=== PATIENT | male | born 1945 | race Caucasian/White ===

== ENCOUNTER 2016-07-17 19:36 | Emergency (ER) | payer MEDICARE, BC ==
--- NOTE | 2016-07-17 21:04 | ED ---
Throat Pain/Nasal Congestion - HPI Summary HPI Summary: Patient presents with a foreign body sensation in his left eye since mowing the lawn today. He denies knowing that he had anything go into his eye, but that is what it feels like. He does not wear contact lens. He denies ISSA, vision changes , drainage or nausea. - History of Current Complaint Chief Complaint: EDEyeProblem Time Seen by Provider: 07/17/16 19:50 Hx Obtained From: Patient, Family/Plastics Technician Onset/Duration: Gradual Onset Severity: Mild Associated Signs And Symptoms: Positive: FB Sensation Cough: None - Allergies/Home Medications Allergies/Adverse Reactions: Allergies Allergy/AdvReac Type Severity Reaction Status Date / Time Nitroglycerin Allergy Headache Verified 07/26/14 08:08 PMH/Surg Hx/FS Hx/Imm Hx Endocrine/Hematology History: Denies: Hx Diabetes Cardiovascular History: Reports: Hx Angina - WITH EATING. LAST TIME 2012 Denies: Hx Congestive Heart Failure, Hx Hypertension History: Reports: Hx Kidney Stones - 5 YRS AGO, Other Problems/Disorders - prostate ca, kidney cyst Denies: Hx Renal Disease Musculoskeletal History: Reports: Hx Arthritis Sensory History: Denies: Hx Contacts or Glasses, Hx Hearing Aid Opthamlomology History: Denies: Hx Contacts or Glasses Neurological History: Reports: Other Neuro Impairments/Disorders - numbness L first finger - Cancer History Cancer Type, Location and Year: PROSTATE - Surgical History Surgery Procedure, Year, and Place: 2009 LITHOTRIPSY [facility]. 08/2012 PROSTATECTOMY [place]. PILONIDIAL CYST 1972 Hx Anesthesia Reactions: No - Immunization History Date of Tetanus Vaccine: up to date per pt Infectious Disease History: No Infectious Disease History: Denies: Traveled Outside the [place] in Last 30 Days - Family History Known Family History: Positive: Cardiac Disease, Hypertension - Social History Occupation: Retired Lives: With Family Alcohol Use: Daily Alcohol Amount: 2-3/DAY Substance Use Type: Reports: None Smoking Status (MU): Former Smoker Have You Smoked in the Last Year: No Review of Systems Negative: Fever, Chills Positive: Erythema - mild scleral. Negative: Photophobia, Blurred Vision, Diplopia, Drainage Negative: Headache All Other Systems Reviewed And Are Negative: Yes Physical Exam Triage Information Reviewed: Yes Vital Signs On Initial Exam: Initial Vitals Temp Pulse Resp BP Pulse Ox 97.7 F 64 18 137/81 99 04/28/17 19:42 07/17/16 19:42 07/17/16 19:42 07/17/16 19:42 07/17/16 19:42 Vital Signs Reviewed: Yes Appearance: Positive: Well-Appearing, No Pain Distress, Well-Nourished Skin: Positive: Warm, Skin Color Reflects Adequate Perfusion, Dry, Soft Head/Face: Positive: Normal Head/Face Inspection Eyes: Positive: EOMI, ANTONIA, Conjunctiva Inflammed - mild left ENT: Positive: Hearing grossly normal Respiratory/Lung Sounds: Positive: Breath Sounds Present Cardiovascular: Positive: RRR Musculoskeletal: Negative: Edema Left, Edema Right Neurological: Positive: Sensory/Motor Intact, Alert, Oriented to Person Place, Time, NV Bundle Intact Distally, Normal Gait Psychiatric: Positive: Affect/Mood Appropriate AVPU Assessment: Alert Procedures - Eye Procedure Alcaine Drops Administered: Yes Eye Irrigated w/ Saline (ccs): 10 - no foreign body noted, abrasion to cornea Diagnostics - Vital Signs Vital Signs Temp Pulse Resp BP Pulse Ox 07/17/16 19:54 97.7 F 64 18 137/81 99 07/17/16 19:42 97.7 F 64 18 137/81 99 - Laboratory Lab Statement: Any lab studies that have been ordered have been reviewed, and results considered in the medical decision making process. EENT Course/Dx - Differential Diagnoses Differential Diagnoses: Abrasion, Conjunctivitis, Corneal Abrasion, Detached Retina, Periorbital/Orbital Cellulitis - Diagnoses Provider Diagnoses: Left corneal abrasion Discharge - Discharge Plan Condition: Stable Disposition: HOME Patient Education Materials: Corneal Abrasion (ED) Referrals: Ricky Morgan MD [Primary Care Provider] - Additional Instructions: Use the ointment provided three times daily as directed. Follow-up with your primary care provider next week if symptoms persist. Return to the emergency department if symptoms worsen.
[2016-07-17] MEDS ORDERED: Erythromycin OPTH OINT* APPLIC OINT LEFT EYE ONE (21:06)
[2016-07-17 21:24] VITALS: BP 131/80
== END 2016-07-17 21:23 | disposition home or self-care (01) ==
LOC: ED 19:36
DX: S05.02XA Injury of conjunctiva and corneal abrasion without foreign body, left eye, initial encounter (principal); X58.XXXA Exposure to other specified factors, initial encounter; Y93.H2 Activity, gardening and landscaping; Y92.9 Unspecified place or not applicable
CPT/HCPCS: 99282; A9270-GY

== ENCOUNTER 2016-11-23 05:40 | Emergency (ER) | payer MEDICARE, BC ==
[2016-11-23] MEDS ORDERED: NS 0.9% 1000 ML* 1,000 ML IV ONE (06:02)
[2016-11-23 06:20] LABS: Hematocrit 43 % (42-52); Hemoglobin 14.7 g/dl (14.0-18.0); Mean Corpuscular HGB Conc 34 g/dl (31-36); Mean Corpuscular Hemoglobin 31 pg (27-31); Mean Corpuscular Volume 91 fL (80-94); Mean Platelet Volume 8 um3 (7.4-10.4); Red Cell Distribution Width 13 % (10.5-15); White Blood Count 8.3 10^3/ul (3.5-10.8)
[2016-11-23 06:35] LABS: Albumin 4.3 g/dL (3.2-5.2); BUN/Creatinine Ratio 23.5 (8-20); C Reactive Protein 1.54 mg/L (< 5.00); EGFR African American 120.1 (>60); EGFR Non-African American 93.4 (>60); Potassium 4.1 mmol/L (3.5-5.0); Total Bilirubin 0.8 mg/dL (0.2-1.0); Total Protein 6.3 g/dL (6.4-8.9)
--- NOTE | 2016-11-23 07:02 | ED ---
Armaan Jacobo Rebecca, scribed for Marcos Camilo MD on 11/23/16 at 0602 . Abdominal Pain/Male - HPI Summary HPI Summary: Pt is a 71 y/o M who presents to ED c/o RLQ pain. Pain began last night at 2230 when the pt went to bed and has persisted throughout the night. Pain is currently moderate, ranked 4/10 and characterized as "tender, like a dull ache. " Sx aggravated and alleviated by nothing, unchanged by BM. Denies nausea. PMHx diverticulitis which was diagnosed 3-4 years ago. Current sx are similar to those experienced with diverticulitis. - History of Current Complaint Chief Complaint: EDAbdPain Stated Complaint: LRQ PAIN Time Seen by Provider: 11/23/16 05:57 Hx Obtained From: Patient Onset/Duration: Still Present Severity Currently: Moderate Pain Intensity: 4 Pain Scale Used: 0-10 Numeric Location: Discrete At: RLQ Character: Dull Aggravating Factor(s): Nothing Alleviating Factor(s): Nothing Associated Signs And Symptoms: Positive: Negative. Negative: Nausea - Allergies/Home Medications Allergies/Adverse Reactions: Allergies Allergy/AdvReac Type Severity Reaction Status Date / Time Nitroglycerin Allergy Headache Verified 07/26/14 08:08 PMH/Surg Hx/FS Hx/Imm Hx Endocrine/Hematology History: Denies: Hx Diabetes Cardiovascular History: Reports: Hx Angina - WITH EATING. LAST TIME 2012 Denies: Hx Congestive Heart Failure, Hx Hypertension GI History: Reports: Hx Diverticulosis History: Reports: Hx Kidney Stones - 5 YRS AGO, Other Problems/Disorders - prostate ca, kidney cyst Denies: Hx Renal Disease Musculoskeletal History: Reports: Hx Arthritis Sensory History: Denies: Hx Contacts or Glasses, Hx Hearing Aid Opthamlomology History: Denies: Hx Contacts or Glasses Neurological History: Reports: Other Neuro Impairments/Disorders - numbness L first finger - Cancer History Cancer Type, Location and Year: PROSTATE - Surgical History Surgery Procedure, Year, and Place: 2009 LITHOTRIPSY [facility] [place]. 08/2012 PROSTATECTOMY [place]. PILONIDIAL CYST 1972 Hx Anesthesia Reactions: No - Immunization History Date of Tetanus Vaccine: up to date per pt Infectious Disease History: No Infectious Disease History: Denies: Traveled Outside the [place] in Last 30 Days - Family History Known Family History: Positive: Cardiac Disease, Hypertension - Social History Alcohol Use: Daily Alcohol Amount: 2-3/DAY Substance Use Type: Reports: None Smoking Status (MU): Former Smoker Have You Smoked in the Last Year: No Review of Systems Negative: Fever Positive: Abdominal Pain - RLQ. Negative: Nausea All Other Systems Reviewed And Are Negative: Yes Physical Exam Triage Information Reviewed: Yes Vital Signs On Initial Exam: Initial Vitals Temp Pulse Resp BP Pulse Ox 97.9 F 55 16 135/88 99 11/23/16 05:47 11/23/16 05:47 11/23/16 05:47 11/23/16 05:47 11/23/16 05:47 Vital Signs Reviewed: Yes Appearance: Positive: Well-Appearing, Pain Distress - mild lower abd pain Skin: Positive: Warm Head/Face: Positive: Normal Head/Face Inspection Eyes: Positive: ANTONIA Neck: Positive: Supple, Nontender Respiratory/Lung Sounds: Positive: Breath Sounds Present Cardiovascular: Positive: RRR Abdomen Description: Positive: Soft, Other: - mild rt lower abd tenderness Bowel Sounds: Positive: Present Musculoskeletal: Positive: Strength/ROM Intact Neurological: Positive: Alert, Oriented to Person Place, Time Diagnostics - Vital Signs Vital Signs Temp Pulse Resp BP Pulse Ox 11/23/16 05:47 97.9 F 55 16 135/88 99 - Laboratory Result Diagrams: 11/23/16 06:09 11/23/16 06:09 Lab Statement: Any lab studies that have been ordered have been reviewed, and results considered in the medical decision making process. Abdominal Pain Fem Course/Dx - Course Assessment/Plan: Pt is a 71 y/o M who presents to ED c/o RLQ pain. Pain began last night at 2230 when the pt went to bed and has persisted throughout the night. Pain is currently moderate, ranked 4/10 and characterized as "tender, like a dull ache." Sx aggravated and alleviated by nothing, unchanged by BM. Denies nausea. PMHx diverticulitis which was diagnosed 3-4 years ago. Current sx are similar to those experienced with diverticulitis. In the ED course, pt received fluids. Pt will be signed out to Dr. Shah, pending disposition, awaiting CT Abd/Pel. Pt will be signed out, pending disposition, awaiting CT Abd /Pel. Elevated BP noted and advised to f/u with PCP. - Diagnoses Provider Diagnoses: Diverticulitis Discharge - Discharge Plan Condition: Stable Disposition: OTHER Discharge Disposition Comment: Pt will be signed out to Dr. Shah, pending dispo, awaiting CT Abd/Pel Prescriptions: Levofloxacin TAB* [Levaquin TAB*] 500 mg PO DAILY #10 tab Metronidazole [Flagyl 500 MG TAB] 500 mg PO TID #30 tab Patient Education Materials: Diverticulitis (ED) Referrals: Ricky Morgan MD [Primary Care Provider] - Additional Instructions: Please follow up with your primary care provider in 3 days. The documentation as recorded by the Armaan weeks Rebecca accurately reflects the service I personally performed and the decisions made by me, Marcos Camilo MD.
[2016-11-23] MEDS ORDERED: Iohexol 300* (CONTRAST) 10 ML SDV IV ONE (08:04)
[2016-11-23 09:07] LABS: Urine Bilirubin Negative (Negative); Urine Glucose Negative (Negative); Urine Nitrite Negative (Negative)
--- NOTE | 2016-11-23 09:07 | RAD ---
INDICATION: Lower abdominal pain. History of diverticulosis. History of urolithiasis. Prostate cancer post prostatectomy. COMPARISON: December 27, 2014 CT. TECHNIQUE: Multidetector CT images were obtained from the lung bases to the ischial tuberosities with 117 mL Omnipaque 300 IV and oral contrast. Multiplanar reformation. REPORT: Unremarkable visualized inferior thorax. Few unchanged well-circumscribed water density hepatic lesions consistent with cysts with dominant 1.7 cm cyst at the dome of the LEFT hepatic lobe. No suspicious focal hepatic lesions evident. Negative for biliary dilatation. No CT abnormality of the gallbladder, pancreas, spleen. Negative for CT abnormality of the upper GI, small bowel, or retro to infra cecal appendix. Severe colonic diverticulosis mainly involving the sigmoid colon with mild perienteric inflammatory change at the level of the mid to distal sigmoid colon suspicious for mild acute diverticulitis. No extra enteric gas or perienteric abscess collection evident. Only trace free pelvic fluid. Small fat-containing umbilical hernia without inflammatory change. Normal adrenal glands. Few renal cortical cysts with dominant 2 cysts on the LEFT measuring up to 4.6 cm with both of the dominant LEFT renal cortical cyst demonstrating minimal dependent debris similar to the prior exam. No suspicious focal renal lesions. Negative for hydronephrosis. Unremarkable ureters. Completely decompressed urinary bladder limiting assessment without gross abnormality. No suspicious CT finding at the prostatectomy resection bed. Negative for lymphadenopathy. Mild atherosclerotic plaque and tortuous course of normal diameter abdominal aorta. 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 Degenerative spondylosis and facet joint osteoarthritis most prominent at L5-S1. Associated reactive endplate sclerosis most prominent at the inferior endplate of L2 and superior endplate of L5. No suspicious focal osseous lesions evident. IMPRESSION: 1. The constellation of findings is consistent with mild sigmoid diverticulitis. The magnitude of inflammatory change is less marked than on the December 27, 2014 exam. Negative for free air or perienteric abscess. 2. Post prostatectomy. Negative for lymphadenopathy or suspicious osseous lesions.
[2016-11-23] MEDS ORDERED: metroNIDAZOLE IV 500 MG/100ML* 500 MG/100 ML BAG IVPB ONE (09:10)
[2016-11-23] MEDS ORDERED: Levofloxacin 750 MG IVPREMIX(* 750 MG/150 ML BAG IVPB ONE (09:10)
--- NOTE | 2016-11-23 10:50 | ED ---
Matt Jacobo Angela, scribed for Richard Shah on 11/23/16 at 0729 . Progress - Progress Note Progress Note: Pt is a 71 y/o male presenting to [facility] c/o RLQ pain. Pt reports his pain began last night at 2230. He notes his pain is similar to PMHx: diverticulitis (3-4 years ago). This patient was signed out from Dr. Camilo, pending disposition, awaiting CT abdomen/pelvis. CT abdomen/pelvis reveals 1. The constellation of findings is consistent with mild sigmoid diverticulitis. The magnitude of inflammatory change is less marked than on the December 27, 2014 exam. Negative for free air or perienteric abscess. 2. Post prostatectomy. Negative for lymphadenopathy or suspicious osseous lesions. The pt's condition is stable and will be discharged home with a diagnosis of diverticulitis. - Results/Orders Results/Orders: CT abdomen/pelvis IMPRESSION: 1. The constellation of findings is consistent with mild sigmoid diverticulitis. The magnitude of inflammatory change is less marked than on the December 27, 2014 exam. Negative for free air or perienteric abscess. 2. Post prostatectomy. Negative for lymphadenopathy or suspicious osseous lesions. Course/Dx - Diagnoses Provider Diagnoses: Diverticulitis The documentation as recorded by the Matt weeks Angela accurately reflects the service I personally performed and the decisions made by Pablo mishra Emmanuel.
[2016-11-23 11:01] VITALS: BP 134/93
== END 2016-11-23 11:00 ==
LOC: ED 05:40
DX: K57.92 Diverticulitis of intestine, part unspecified, without perforation or abscess without bleeding (principal); R10.31 Right lower quadrant pain
CPT/HCPCS: 36415; 74177; 80053; 81003; 83605; 83690; 83735; 85025; 86140; 99283; Q9967

== ENCOUNTER 2018-10-03 22:52 | Emergency (ER) | payer MEDICARE, BC ==
--- OUTSIDE RECORDS SUMMARY | 2018-10-03 23:10 | XMS REPORT | Continuity of Care Document ---
:1945 External Reference #:[id number] Author Name Benjie Krueger Care Team Providers Name Role Phone Rivera Millard III, MD Primary Care Physician Unavailable Payers Date Identification Numbers Payment Provider Subscriber Effective: 2008 Policy Number: [id number] Medicare Frances Venegas José PayID: [id number] [address] [place] [address] Effective: 2011 Policy Number: [id number] [employer]ets Frances Venegas José PayID: [id number] [address] [address] [place] [address] Problems Active Problems Provider Date Mixed hyperlipidemia Ricky Morgan M.D.,FACP Onset: 07/05/2007 Impaired fasting glycaemia Ricky Morgan M.D.,FACP Onset: 08/19/2011 Malignant tumor of prostate Ricky Morgan M.D.,FACP Onset: 07/22/2012 Kidney stone Ricky Morgan M.D.,FACP Onset: 12/28/2014 Diverticular disease of colon Ricky Morgan M.D.,FACP Onset: 03/05/2015 Insomnia Ricky Morgan M.D.,FACP Onset: 09/01/2017 Ex-smoker Ricky Mrogan M.D.,FACP Onset: 03/18/2018 Inactive Problems Benign prostatic hypertrophy without Ricky Morgan M.D.,FACP Onset: outflow obstruction Inactive: 08/19/2012 Family History Date Family Member(s) Observation Comments Father due to Cancer, () - 79 Colon Mother due to Cancer, () Breast Siblings 1 First Brother Diabetes Type II : (age 100 Paternal Grandfather due to Unknown Years) Causes Social History Type Date Description Comments Sex Unknown Marital Status Lives With Occupation Retired Tobacco Use Start: Unknown End: Former Cigarette for 20 years. Quit Unknown Smoker 1 Pack Daily 1982 Smoking Status Reviewed: 09/05/18 Former Cigarette for 20 years. Quit Smoker 1 Pack Daily 1982 ETOH Use 08/31/2016 consumes 2-3 beers per CAGE questions - yes day to guilt, o/w negative Recreational Drug Use Denies Drug Use Tobacco Use Start: Unknown End: Patient is a former Started 1961; Quit Unknown smoker 1982; smoked max 1ppd Exercise Type/Frequency Exercises regularly walks 3 miles/day Allergies, Adverse Reactions, Alerts Active Allergies Reaction Severity Comments Date Nitroglycerin topical causes headache 07/05/2007 Inactive Allergies NKDA 07/05/2007 Medications Active Medications SIG Qnty Indications Ordering Provider Date Fish Oil 1 po qd Ricky Yuan 07/21/2010 1000mg Harvey Morgan,ZONIA Capsules Glucosamine 2 po qd Ricky Yuan 07/21/2010 Chondroitin Complex Harvey Morgan,FACP Capsules Aspirin 1 po qd 786.59 Ricky Yuan 07/21/2010 81mg Tablets Harvey Morgan,FACP Melatonin 2 po during the 30caps Unknown 5mg Capsules night for insomnia. Repeats when needed. Lipitor take one tablet 90tabs Rivera Millard, 10mg Tablets by mouth once M.D. daily at bedtime Bactroban Nasal apply to both 10gm Ricky Yuan 2% nostrils twice a Harvey Morgan,FACP Ointment day History Medications Azithromycin 2 every day for 1 6tabs Ricky Yuan 03/18/2018 - 250mg day, then 1 every Harvey Morgan,FACP 03/23/2018 Tablets day Shingrix 0.5 milliliters 2units Ricky Yuan 09/01/2017 - 50mcg intramuscular now Harvey Morgan,FACP 09/05/2018 Suspension Rec and 2-3 months later repeat Metronidazole three times a day 21tabs Ricky Yuan 02/15/2017 - 500mg for 7 days Harvey Morgan,[facility] 02/22/2017 Tablets Levaquin 1 by mouth every day 7tabs Ricky Yuan 02/15/2017 - 500mg Tablets x 7 days Harvey [facility] 02/22/2017 Ciprofloxacin HCL si twice a day x K57.32 Unknown 12/27/2014 - 500mg 5 days 01/02/2015 Tablets Metronidazole three times a day K57.32 Unknown 12/27/2014 - 500mg for 7 days 01/02/2015 Tablets Naproxen 1 tablet by mouth 30tabs 728.89 Galdino Mcdonnell, 09/28/2014 - 250mg Tablets twice a day as M.D. 10/22/2014 needed pain, with foods Cyclobenzaprine HCL 1 tablet by mouth 30tabs 728.89 Galdino Mcdonnell, 2014 - 5mg three times a day as M.D. 12/28/2014 Tablets needed Meclizine HCL 1/2-1 by mouth three 30tabs Ricky Yuan 06/20/2013 - 25mg times a day as Harvey Morgan,[facility] 06/21/2013 Tablets needed Amoxicillin/Clavulana 1 tab by mouth 2x 20tabs 461.1 Jennifer Nicholas, 2013 - te Potassium per day M.D. 08/28/2014 875-125mg Tablets Betamethasone apply as directed 45units Ricky Yuan 05/01/2013 - Valerate Harvey Morgan,[facility] 10/22/2014 0.1% Cream Estazolam 1 tab po qhs 30tabs 780.52 Zuleima Florence, 09/21/2012 - 2mg Tablets N.P. 09/21/2012 Lunesta 2 tabs po qhs prn. 60tabs 780.52 Zuleima Florence, 09/21/2012 - 1mg Tablets N.P. 09/21/2012 Lunesta 1 hs 30tabs 780.52 Axel Herrera, 09/21/2012 - 2mg Tablets M.D. 06/09/2013 Augmentin po bid 20tabs 381.00 Serafin 01/27/2011 - 875-125mg Harvey Galan 08/19/2011 Tablets Nystatin/Triamcinolon topically bid prn 30gm 698.0 Ricky Yuan 2007 - e Harvey Morgan,FACP 07/05/2008 Cream Flomax 1 PO qd 30caps Ricky Yuan - 0.4mg Caps ER Harvey Morgan,FACP 08/27/2014 24HR Amoxicillin Unknown - 500mg 10/27/2014 Capsules Vinegar 2 tbsp daily @ am Unknown - Unknown Metaxalone 1 by mouth 3x/day if Unknown - 400mg needed (for plantar Unknown Tablets fascitis) Metronidazole 1 po tid prn 21tabs Ricky Yuan - 500mg diverticulitis Harvey Morgan,FACP Unknown Tablets Levofloxacin 1 po qd prn for 7tabs Ricky Yuan - 500mg diverticulitis Harvey Morgan,FACP Unknown Tablets Immunizations CPT Code Status Date Vaccine Lot # [id number] Given 08/27/2014 Tdap - Tetanus/Diptheria/Acellular Pertussis [id number] Given 08/27/2014 Pneumococcal Conjugate Vaccine 13 Valent For [id number] Intramuscular Use [id number] Given 01/11/2013 Zoster (Zostavax) [id number] Given 01/11/2013 Zoster (Zostavax) [id number] 62572 Given 07/21/2010 Pneumonia Vaccine [id number] Given 01/24/2004 Td Toxoids Adsorbed For Use 7Yrs Or Older For Intramuscular Use [id number] Refused 12/31/2010 Influenza Virus 3Yrs & Over [id number] Refused 07/21/2010 Influenza Virus 3Yrs & Over Vital Signs Date Vital Result Comment 09/05/2018 10:45am Height 68 inches 5'8" Weight 201.00 lb Heart Rate 68 /min BP Systolic Sitting 142 mmHg BP Diastolic Sitting 84 mmHg BMI (Body Mass Index) 30.6 kg/m2 03/18/2018 2:32pm Height 68.5 inches 5'8.50" Weight 205.00 lb Heart Rate 88 /min BP Systolic Sitting 140 mmHg BP Diastolic Sitting 80 mmHg Body Temperature 98.6 F O2 % BldC Oximetry 94 % BMI (Body Mass Index) 30.7 kg/m2 09/01/2017 12:51pm Height 68.5 inches 5'8.50" Weight 195.00 lb Heart Rate 74 /min BP Systolic Sitting 136 mmHg BP Diastolic Sitting 70 mmHg Body Temperature 98.1 F O2 % BldC Oximetry 95 % BMI (Body Mass Index) 29.2 kg/m2 02/02/2017 10:58am Height 69 inches 5'9" Weight 195.00 lb Heart Rate 72 /min BP Systolic 148 mmHg BP Diastolic 82 mmHg Respiratory Rate 18 /min Body Temperature 98.5 F BMI (Body Mass Index) 28.8 kg/m2 11/25/2016 9:52am Weight 200.00 lb "194.4 on home unit" Heart Rate 65 /min BP Systolic Sitting 140 mmHg BP Diastolic Sitting 80 mmHg Body Temperature 97.1 F O2 % BldC Oximetry 97 % 08/31/2016 10:42am Height 69 inches 5'9" Weight 198.12 lb Heart Rate 65 /min BP Systolic Sitting 126 mmHg BP Diastolic Sitting 80 mmHg Body Temperature 97.8 F O2 % BldC Oximetry 97 % BMI (Body Mass Index) 29.3 kg/m2 10/01/2015 2:35pm Weight 162.00 lb Heart Rate 89 /min BP Systolic Sitting 121 mmHg BP Diastolic Sitting 75 mmHg Body Temperature 98.2 F 08/30/2015 9:46am Height 68.5 inches 5'8.50" Weight 195.00 lb Heart Rate 64 /min BP Systolic Sitting 128 mmHg BP Diastolic Sitting 72 mmHg O2 % BldC Oximetry 98 % BMI (Body Mass Index) 29.2 kg/m2 03/05/2015 9:10am Weight 208.00 lb Heart Rate 75 /min BP Systolic Sitting 144 mmHg BP Diastolic Sitting 80 mmHg Body Temperature 98.1 F O2 % BldC Oximetry 98 % 12/28/2014 1:46pm Height 68 inches 5'8" Weight 206.25 lb Heart Rate 67 /min BP Systolic Sitting 126 mmHg BP Diastolic Sitting 78 mmHg Body Temperature 97.9 F O2 % BldC Oximetry 98 % BMI (Body Mass Index) 31.4 kg/m2 10/22/2014 10:52am Height 68 inches 5'8" Weight 207.25 lb Heart Rate 69 /min BP Systolic Sitting 120 mmHg BP Diastolic Sitting 70 mmHg Body Temperature 97.4 F O2 % BldC Oximetry 97 % BMI (Body Mass Index) 31.5 kg/m2 09/28/2014 3:53pm Height 68 inches 5'8" Weight 202.25 lb Heart Rate 88 /min BP Systolic Sitting 128 mmHg BP Diastolic Sitting 70 mmHg Body Temperature 98.4 F O2 % BldC Oximetry 98 % BMI (Body Mass Index) 30.7 kg/m2 08/27/2014 12:45pm Height 68 inches 5'8" Weight 208.00 lb Heart Rate 78 /min BP Systolic Sitting 160 mmHg BP Diastolic Sitting 82 mmHg Body Temperature 98.5 F O2 % BldC Oximetry 98 % BMI (Body Mass Index) 31.6 kg/m2 08/24/2013 8:19am Height 69 inches 5'9" Weight 204.00 lb Heart Rate 66 /min BP Systolic Sitting 128 mmHg BP Diastolic Sitting 76 mmHg Respiratory Rate 14 /min BMI (Body Mass Index) 30.1 kg/m2 06/21/2013 2:59pm Height 68.5 inches 5'8.50" Weight 205.00 lb Heart Rate 96 /min BP Systolic Sitting 130 mmHg BP Diastolic Sitting 84 mmHg Body Temperature 98.1 F BMI (Body Mass Index) 30.7 kg/m2 06/09/2013 2:11pm Height 68.75 inches 5'8.75" Weight 208.50 lb Heart Rate 83 /min BP Systolic Sitting 144 mmHg BP Diastolic Sitting 89 mmHg Body Temperature 98.2 F O2 % BldC Oximetry 96 % BMI (Body Mass Index) 31.0 kg/m2 09/21/2012 2:51pm Height 68.75 inches 5'8.75" Weight 195.00 lb Heart Rate 68 /min BP Systolic Sitting 138 mmHg BP Diastolic Sitting 74 mmHg BMI (Body Mass Index) 29.0 kg/m2 08/19/2012 10:13am Height 68.75 inches 5'8.75" Weight 202.00 lb Heart Rate 86 /min BP Systolic Sitting 130 mmHg BP Diastolic Sitting 70 mmHg BMI (Body Mass Index) 30.0 kg/m2 02/08/2012 1:51pm Height 68.75 inches 5'8.75" Weight 208.00 lb Heart Rate 78 /min BP Systolic Sitting 135 mmHg BP Diastolic Sitting 74 mmHg BMI (Body Mass Index) 30.9 kg/m2 08/19/2011 10:59am Height 68.75 inches 5'8.75" Weight 200.50 lb Heart Rate 72 /min BP Systolic Sitting 134 mmHg BP Diastolic Sitting 76 mmHg BMI (Body Mass Index) 29.8 kg/m2 01/27/2011 10:26am Height 68.5 inches 5'8.50" Weight 205.00 lb Heart Rate 75 /min BP Systolic Sitting 130 mmHg BP Diastolic Sitting 85 mmHg Body Temperature 97.1 F BMI (Body Mass Index) 30.7 kg/m2 12/31/2010 4:09pm Height 68.5 inches 5'8.50" Weight 204.00 lb Heart Rate 72 /min BP Systolic Sitting 126 mmHg BP Diastolic Sitting 74 mmHg BMI (Body Mass Index) 30.6 kg/m2 12/23/2010 3:13pm Height 68.5 inches 5'8.50" Weight 206.50 lb Heart Rate 72 /min BP Systolic Sitting 140 mmHg BP Diastolic Sitting 92 mmHg BMI (Body Mass Index) 30.9 kg/m2 09/03/2010 9:38am Height 69 inches 5'9" Weight 209.00 lb Heart Rate 72 /min BP Systolic Sitting 146 mmHg BP Diastolic Sitting 78 mmHg BMI (Body Mass Index) 30.9 kg/m2 07/21/2010 2:50pm Height 69 inches 5'9" Weight 206.00 lb Heart Rate 76 /min BP Systolic Sitting 120 mmHg BP Diastolic Sitting 84 mmHg BMI (Body Mass Index) 30.4 kg/m2 07/16/2009 9:52am Height 69 inches 5'9" Weight 217.00 lb Heart Rate 76 /min BP Systolic Sitting 138 mmHg BP Diastolic Sitting 80 mmHg BMI (Body Mass Index) 32.0 kg/m2 09/10/2008 9:51am Height 69 inches 5'9" Weight 208.00 lb Heart Rate 60 /min BP Systolic Sitting 124 mmHg BP Diastolic Sitting 76 mmHg BMI (Body Mass Index) 30.7 kg/m2 07/05/2008 10:17am Weight 213.00 lb Heart Rate 72 /min BP Systolic Sitting 150 mmHg BP Diastolic Sitting 84 mmHg 11/10/2007 11:13am Height 69 inches 5'9" Weight 208.00 lb Heart Rate 72 /min BP Systolic Sitting 132 mmHg BP Diastolic Sitting 80 mmHg BMI (Body Mass Index) 30.7 kg/m2 07/05/2007 12:49pm Height 69 inches 5'9" Weight 212.00 lb Heart Rate 68 /min BP Systolic Sitting 132 mmHg BP Diastolic Sitting 80 mmHg BMI (Body Mass Index) 31.3 kg/m2 Results Test Date Facility Test Result H/L Range Note Lipid Profile 08/31/2018 [facility] Triglycerides 80 mg/dL 1 (Trig/Chol/HDL) [address] [place] [address] [phone] Cholesterol 148 mg/dL 2 HDL Cholesterol 42.8 mg/dL 3 LDL Cholesterol 89 mg/dL 4 Comp Metabolic Panel 08/31/2018 [facility] Sodium 141 mmol/L N [address] [place] [address] [phone] Potassium 4.3 mmol/L N 3.5-5.0 Chloride 109 mmol/L N 101-111 Co2 Carbon Dioxide 25 mmol/L N 22-32 Anion Gap 7 mmol/L N 2-11 Glucose 101 mg/dL High 70-100 Blood Urea Nitrogen 22 mg/dL N 6-24 Creatinine 0.82 mg/dL N 0.67-1.17 BUN/Creatinine Ratio 26.8 High 8-20 Calcium 9.2 mg/dL N 8.6-10.3 Total Protein 6.2 g/dL Low 6.4-8.9 Albumin 4.3 g/dL N 3.2-5.2 Globulin 1.9 g/dL Low 2-4 Albumin/Globulin Ratio 2.3 N 1-3 Total Bilirubin 0.80 mg/dL N 0.2-1.0 Alkaline Phosphatase 60 U/L N 34-104 Alt 17 U/L N 7-52 Ast 16 U/L N 13-39 Egfr Non- 91.8 >60 Egfr 111.1 >60 5 Laboratory test 08/31/2018 [facility] Hemoglobin A1c 5.6 % N 4.0-5.6 6 finding 101 (Glyco HGB) [place] [address] [phone] Laboratory test 01/11/2018 [facility] PSA Diagnostic < 0.008 0-4.[address] ng/[place] [address] [phone] Lipid Profile 08/19/2017 [facility] Triglycerides 56 mg/dL 8 (Trig/Chol/HDL) [address] [place] [address] [phone] Cholesterol 142 mg/dL 9 HDL Cholesterol 49.5 mg/dL 10 LDL Cholesterol 81 mg/dL 11 Basic Metabolic Panel 08/19/2017 [facility] Sodium 141 mmol/L N 139-145 [address] [place] [address] [phone] Potassium 4.2 mmol/L N 3.5-5.0 Chloride 110 mmol/L N 101-111 Co2 Carbon Dioxide 25 mmol/L N 22-32 Anion Gap 6 mmol/L N 2-11 Glucose 94 mg/dL N 70-100 Blood Urea Nitrogen 21 mg/dL N 6-24 Creatinine 0.82 mg/dL N 0.67-1.17 BUN/Creatinine Ratio 25.6 High 8-20 Calcium 9.2 mg/dL N 8.6-10.3 Egfr Non- 92.1 >60 Egfr 118.4 >60 12 Laboratory test 06/30/2017 [facility] PSA Screening 0.016 ng/mL N 0-4.000 13 finding [address] [place] [address] [phone] Urinalysis 11/23/2016 [facility] Urine Color Colorless N Profile [address] [place] [address] [phone] Urine Appearance Clear N Urine Specific Ulm 1.003 Low 1.010-1.030 Urine pH 6.0 N 5-9 Urine Urobilinogen Negative N Negative Urine Ketones Negative N Negative Urine Protein Negative N Negative Urine Leukocytes Negative N Negative Urine Blood Negative N Negative Urine Nitrite Negative N Negative Urine Bilirubin Negative N Negative Urine Glucose Negative N Negative CBC Auto Diff 11/23/2016 [facility] White Blood 8.3 10^3/uL N 3.5-10.[address] [place] [address] [phone] Red Blood Count 4.70 10^6/uL N 4.0-5.4 Hemoglobin 14.7 g/dL N 14.0-18.0 Hematocrit 43 % N 42-52 Mean Corpuscular Volume 91 fL N 80-94 Mean Corpuscular Hemoglobin 31 pg N 27-31 Mean Corpuscular HGB Conc 34 g/dL N 31-36 Red Cell Distribution Width 13 % N 10.5-15 Platelet Count 171 10^3/uL N 150-450 Mean Platelet Volume 8 um3 N 7.4-10.4 Abs Neutrophils 6.4 10^3/uL N 1.5-7.7 Abs Lymphocytes 0.9 10^3/uL Low 1.0-4.8 Abs Monocytes 0.7 10^3/uL N 0-0.8 Abs Eosinophils 0.2 10^3/uL N 0-0.6 Abs Basophils 0 10^3/uL N 0-0.2 Abs Nucleated RBC 0 10^3/uL N Granulocyte % 76.9 % N 38-83 Lymphocyte % 10.8 % Low 25-47 Monocyte % 9.0 % N 1-9 Eosinophil % 2.8 % N 0-6 Basophil % 0.5 % N 0-2 Nucleated Red Blood Cells % 0 N Laboratory test 11/23/2016 [facility] Lactic Acid 1.0 mmol/L N 0.5-2.0 [address] [place] [address] [phone] Comp Metabolic 11/23/2016 [facility] Sodium 137 mmol/L N 133- [address] [place] [address] [phone] Potassium 4.1 mmol/L N 3.5-5.0 Chloride 108 mmol/L N 101-111 Co2 Carbon Dioxide 24 mmol/L N 22-32 Anion Gap 5 mmol/L N 2-11 Glucose 108 mg/dL High 70-100 Blood Urea Nitrogen 19 mg/dL N 6-24 Creatinine 0.81 mg/dL N 0.67-1.17 BUN/Creatinine Ratio 23.5 High 8-20 Calcium 9.0 mg/dL N 8.6-10.3 Total Protein 6.3 g/dL Low 6.4-8.9 Albumin 4.3 g/dL N 3.2-5.2 Globulin 2.0 g/dL N 2-4 Albumin/Globulin Ratio 2.2 N 1-3 Total Bilirubin 0.80 mg/dL N 0.2-1.0 Alkaline Phosphatase 51 U/L N 34-104 Alt 16 U/L N 7-52 Ast 15 U/L N 13-39 Egfr Non- 93.4 N >60 Egfr 120.1 N >60 15 Laboratory test 11/23/2016 [facility] Magnesium 2.0 mg/dL N 1.9-2.[address] [place] [address] [phone] Lipase 28 U/L N 11.0-82.0 C Reactive Protein 1.54 mg/L N < 5.00 16 Lipid Profile 08/20/2016 [facility] Triglycerides 68 mg/dL N 17, 18 (Trig/Chol/HDL) [address] [place] [address] [phone] Cholesterol 160 mg/dL N 19 HDL Cholesterol 47.6 mg/dL N 20 LDL Cholesterol 99 mg/dL N 21 Basic Metabolic Panel 08/20/2016 [facility] Sodium 138 mmol/L N 133-[address] [place] [address] [phone] Potassium 4.2 mmol/L N 3.5-5.0 Chloride 108 mmol/L N 101-111 Co2 Carbon Dioxide 25 mmol/L N 22-32 Anion Gap 5 mmol/L N 2-11 Glucose 108 mg/dL High 70-100 Blood Urea Nitrogen 22 mg/dL N 6-24 Creatinine 0.81 mg/dL N 0.67-1.17 BUN/Creatinine Ratio 27.2 High 8-20 Calcium 9.3 mg/dL N 8.6-10.3 Egfr Non- 93.7 N >60 Egfr 120.5 N >60 22 Laboratory test 06/24/2016 [facility] PSA Diagnostic < 0.008 N 0-4.0 [address] ng/[place] [address] [phone] Laboratory test 12/27/2015 [facility] PSA Screening < 0.008 N 0-4.0 [address] ng/[place] [address] [phone] Laboratory test 11/08/2015 [facility] Surgical Interface SEE RESULT [address] [place] [address] [phone] Laboratory test 10/07/2015 [facility] Occult Blood - pos x 1, finding Stool neg x 2 Lipid Profile 08/23/2015 [facility] Triglycerides 63 mg/dL N 26 (Trig/Chol/HDL) [address] [place] [address] [phone] Cholesterol 138 mg/dL N 27 HDL Cholesterol 47.8 mg/dL N 28 LDL Cholesterol 78 mg/dL N 29 Laboratory test 08/23/2015 [facility] Glucose 91 mg/dL N 70- 100 30 finding [address] [place] [address] [phone] Laboratory test 07/01/2015 [facility] PSA Diagnostic < 0.008 N 0-4.0 31 finding 101 [facility] ng/[place] [address] [phone] Laboratory test 04/17/2015 [facility] Glucose 95 mg/dL N 70- 100 32 finding [address] [place] [address] [phone] Hemoglobin A1c (Glyco HGB) 5.3 % N Less than 6.0 33 Laboratory test 02/25/2015 [facility] PSA Diagnostic 0.012 N 0 -4.0 34 finding 101 [facility] ng/[place] [address] [phone] Laboratory test 02/25/2015 [facility] Glucose 124 mg/dL High 70-100 finding [address] [place] [address] [phone] Urinalysis 12/27/2014 [facility] Urine Color Yellow N Profile [address] [place] [address] [phone] Urine Appearance Clear N Urine Specific Ulm 1.020 N 1.010-1.030 Urine pH 5.0 N 5-9 Urine Urobilinogen Negative N Negative Urine Ketones Negative N Negative Urine Protein Negative N Negative Urine Leukocytes Negative N Negative Urine Blood Negative N Negative Urine Nitrite Negative N Negative Urine Bilirubin Negative N Negative Urine Glucose Negative N Negative Laboratory test finding 12/27/2014 [facility] Lipase 17 U/L N 11.0-82.0 [address] [place] [address] [phone] Creatine Kinase(CK) 169 U/L N 10-223 C Reactive Protein 12.12 mg/L High < 5.00 35 Troponin-I (TnI) 0.00 ng/mL N <0.03 36 Comp Metabolic Panel 12/27/2014 [facility] Sodium 137 mmol/L N 133-145 [address] [place] [address] [phone] Potassium 3.9 mmol/L N 3.5-5.0 Chloride 108 mmol/L N 101-111 Co2 Carbon Dioxide 24 mmol/L N 22-32 Anion Gap 5 mmol/L N 2-11 Glucose 107 mg/dL High 70-100 Blood Urea Nitrogen 17 mg/dL N 6-24 Creatinine 0.82 mg/dL N 0.67-1.17 BUN/Creatinine Ratio 20.7 High 8-20 Calcium 8.8 mg/dL N 8.6-10.3 Total Protein 6.5 g/dL N 6.4-8.9 Albumin 4.0 g/dL N 3.2-5.2 Globulin 2.5 g/dL N 2-4 Albumin/Globulin Ratio 1.6 N 1-3 Total Bilirubin 0.90 mg/dL N 0.2-1.0 Alkaline Phosphatase 63 U/L N 34-104 Alt 17 U/L N 7-52 Ast 15 U/L N 13-39 Egfr Non- 92.6 N >60 Egfr 119.1 N >60 37 Laboratory test 12/27/2014 [facility] Lactic Acid 0.6 mmol/L N 0.5-2.2 finding [address] [place] [address] [phone] Inr/Protime 12/27/2014 [facility] Inr 1.00 N 0.78-1.07 [facility] [place] [address] [phone] CBC Auto Diff 12/27/2014 [facility] White Blood 7.5 10^3/uL N 4.8-10.[address] [place] [address] [phone] Red Blood Count 4.90 10^6/uL N 4.0-5.4 Hemoglobin 15.4 g/dL N 14.0-18.0 Hematocrit 45 % N 42-52 Mean Corpuscular Volume 92 fL N 80-94 Mean Corpuscular Hemoglobin 32 pg High 27-31 Mean Corpuscular HGB Conc 34 g/dL N 31-36 Red Cell Distribution Width 12 % N 10.5-15 Platelet Count 183 10^3/uL N 150-450 Mean Platelet Volume 8 um3 N 7.4-10.4 Abs Neutrophils 5.3 10^3/uL N 1.5-7.7 Abs Lymphocytes 1.0 10^3/uL N 1.0-4.8 Abs Monocytes 0.9 10^3/uL High 0-0.8 Abs Eosinophils 0.2 10^3/uL N 0-0.6 Abs Basophils 0 10^3/uL N 0-0.2 Abs Nucleated RBC 0 10^3/uL N Granulocyte % 70.7 % N 38-83 Lymphocyte % 13.3 % Low 25-47 Monocyte % 12.2 % High 1-9 Eosinophil % 3.1 % N 0-6 Basophil % 0.7 % N 0-2 Nucleated Red Blood Cells % 0 N Laboratory test 12/27/2014 [facility] Stool For Blood SEE RESULT [address] [place] [address] [phone] Laboratory test 12/27/2014 [facility] Stool For Blood SEE RESULT [address] [place] [address] [phone] Laboratory test 10/30/2014 [facility] PSA Diagnostic < 0.008 N 0-4.0 [address] ng/[place] [address] [phone] Lipid Profile 08/23/2014 [facility] Triglycerides 89 mg/dL N 41 (Trig/Chol/HDL) [address] [place] [address] [phone] Cholesterol 149 mg/dL N 42 HDL Cholesterol 40.2 mg/dL N 43 LDL Cholesterol 91 mg/dL N 44 Comp Metabolic Panel 08/23/2014 [facility] Sodium 140 mmol/L N 133-[address] [place] [address] [phone] Potassium 3.8 mmol/L N 3.5-5.0 Chloride 108 mmol/L N 101-111 Co2 Carbon Dioxide 26 mmol/L N 22-32 Anion Gap 6 mmol/L N 2-11 Blood Urea Nitrogen 18 mg/dL N 6-24 Creatinine 0.84 mg/dL N 0.67-1.17 BUN/Creatinine Ratio 21.4 High 8-20 Calcium 9.3 mg/dL N 8.6-10.3 Total Protein 6.3 g/dL Low 6.4-8.9 Albumin 4.4 g/dL N 3.2-5.2 Globulin 1.9 g/dL Low 2-4 Albumin/Globulin Ratio 2.3 N 1-3 Total Bilirubin 0.90 mg/dL N 0.2-1.0 Alkaline Phosphatase 59 U/L N 34-104 Alt 16 U/L N 7-52 Ast 14 U/L N 13-39 Egfr Non- 90.3 N >60 Egfr 116.2 N >60 45 Laboratory test 08/23/2014 [facility] Glucose 100 mg/dL N 70- 100 finding [address] [place] [address] [phone] Laboratory test 07/27/2014 [facility] Lipase 21 U/L N 11.0- 82.0 finding [address] [place] [address] [phone] C Reactive Protein < 1.00 mg/L N < 5.00 46 CBC Auto 07/27/2014 [facility] White Blood 11.2 10^3/uL High 4.8-10.[address] [place] [address] [phone] Red Blood Count 5.18 10^6/uL N 4.0-5.4 Hemoglobin 16.3 g/dL N 14.0-18.0 Hematocrit 47 % N 42-52 Mean Corpuscular Volume 91 fL N 80-94 Mean Corpuscular Hemoglobin 32 pg High 27-31 Mean Corpuscular HGB Conc 34 g/dL N 31-36 Red Cell Distribution Width 14 % N 10.5-15 Platelet Count 200 10^3/uL N 150-450 Mean Platelet Volume 8 um3 N 7.4-10.4 Abs Neutrophils 9.4 10^3/uL High 1.5-7.7 Abs Lymphocytes 0.8 10^3/uL Low 1.0-4.8 Abs Monocytes 1.0 10^3/uL High 0-0.8 Abs Eosinophils 0 10^3/uL N 0-0.6 Abs Basophils 0 10^3/uL N 0-0.2 Abs Nucleated RBC 0.01 10^3/uL N Granulocyte % 83.6 % High 38-83 Lymphocyte % 7.3 % Low 25-47 Monocyte % 8.8 % N 1-9 Eosinophil % 0 % N 0-6 Basophil % 0.3 % N 0-2 Nucleated Red Blood Cells % 0.1 N Urinalysis Profile 07/27/2014 [facility] Urine Color Yellow N [address] [place] [address] [phone] Urine Appearance Clear N Urine Specific [place] 1.027 N 1.010-1.030 Urine pH 5.0 N 5-9 Urine Urobilinogen Negative N Negative Urine Ketones Negative N Negative Urine Protein Negative N Negative Urine Leukocytes Negative N Negative Urine Blood Negative N Negative Urine Nitrite Negative N Negative Urine Bilirubin Negative N Negative Urine Glucose Negative N Negative Comp Metabolic Panel 07/27/2014 [facility] Sodium 133 mmol/L N 133-[address] [place] [address] [phone] Potassium 4.4 mmol/L N 3.5-5.0 Chloride 106 mmol/L N 101-111 Co2 Carbon Dioxide 22 mmol/L N 22-32 Anion Gap 5 mmol/L N 2-11 Glucose 120 mg/dL High 70-100 Blood Urea Nitrogen 25 mg/dL High 6-24 Creatinine 1.17 mg/dL N 0.67-1.17 BUN/Creatinine Ratio 21.4 High 8-20 Calcium 9.6 mg/dL N 8.6-10.3 Total Protein 7.1 g/dL N 6.4-8.9 Albumin 4.6 g/dL N 3.2-5.2 Globulin 2.5 g/dL N 2-4 Albumin/Globulin Ratio 1.8 N 1-3 Total Bilirubin 0.70 mg/dL N 0.2-1.0 Alkaline Phosphatase 52 U/L N 34-104 Alt 17 U/L N 7-52 Ast 18 U/L N 13-39 Egfr Non- 61.6 N >60 Egfr 79.3 N >60 47 Laboratory test 07/27/2014 [facility] Lactic Acid 0.7 mmol/L N 0.5-2.[address] [place] [address] [phone] Laboratory test 06/27/2014 [facility] PSA Diagnostic < 0.008 N 0-4.0 [address] ng/[place] [address] [phone] Laboratory test 02/20/2014 [facility] PSA Diagnostic < 0.008 N 0-4.0 [address] ng/[place] [address] [phone] Ua Routine 08/24/2013 [facility] Ua Specific 1.010 Ulm Ua PH 5.0 Ua Color yellow Ua Appera clear Ua WBC neg Ua Protein neg Ua Glucose neg Ua Ketones neg Ua Bilirubin neg Ua Urobilinogen neg Ua Nitrite neg Ua Occult Blood hem trace Laboratory test 07/19/2013 [facility] PSA Diagnostic < 0.008 N 0-4.0 [address] ng/[place] [address] [phone] Lipid Profile 06/20/2013 Triglycerides 86 mg/dL N 51 (Trig/Chol/HDL) Cholesterol 142 mg/dL N 52 HDL Cholesterol 36.9 mg/dL N 53 LDL Cholesterol 88 mg/dL N 54 Comp Metabolic Panel 06/20/2013 Sodium 140 mmol/L N 133-145 Potassium 4.1 mmol/L N 3.7-5.6 Chloride 108 mmol/L N 101-111 Co2 Carbon Dioxide 26 mmol/L N 22-32 Anion Gap 6 mmol/L N 2-11 Glucose 96 mg/dL N 70-100 Blood Urea Nitrogen 18 mg/dL N 6-24 Creatinine 0.85 mg/dL N 0.67-1.17 BUN/Creatinine Ratio 21.2 High 8-20 Calcium 9.4 mg/dL N 8.6-10.3 Total Protein 6.9 g/dL N 6.4-8.9 Albumin 4.6 g/dL N 3.2-5.2 Globulin 2.3 g/dL N 2-4 Albumin/Globulin Ratio 2.0 N 1-3 Total Bilirubin 1.00 mg/dL N 0.2-1.0 Alkaline Phosphatase 57 U/L N 34-104 Alt 21 U/L N 7-52 Ast 18 U/L N 13-39 Egfr Non- 89.4 N >60 Egfr 114.9 N >60 55 Laboratory test finding 06/20/2013 Creatine Kinase 101 U/L N 10-223 TSH (Thyroid Stimulating Horm) 2.41 IU/mL N 0.34-5.60 CBC Auto Diff 06/20/2013 White Blood Count 4.7 10^3/uL Low 4.8-10.8 Red Blood Count 5.28 10^6/uL N 4.0-5.4 Hemoglobin 16.8 g/dL N 14.0-18.0 Hematocrit 48 % N 42-52 Mean Corpuscular Volume 90 fL N 80-94 Mean Corpuscular Hemoglobin 32 pg High 27-31 Mean Corpuscular HGB Conc 35 g/dL N 31-36 Red Cell Distribution Width 12 % N 10.5-15 Platelet Count 181 10^3/uL N 150-450 Mean Platelet Volume 8 um3 N 7.4-10.4 Abs Neutrophils 2.6 10^3/uL N 1.5-7.7 Abs Lymphocytes 1.2 10^3/uL N 1.0-4.8 Abs Monocytes 0.5 10^3/uL N 0-0.8 Abs Eosinophils 0.3 10^3/uL N 0-0.6 Abs Basophils 0.1 10^3/uL N 0-0.2 Abs Nucleated RBC 0 10^3/uL N Granulocyte % 55.7 % N 38-83 Lymphocyte % 25.3 % N 25-47 Monocyte % 11.0 % High 1-9 Eosinophil % 6.9 % High 0-6 Basophil % 1.1 % N 0-2 Nucleated Red Blood Cells % 0 N Laboratory test 06/20/2013 Vitamin B12 467 pg/mL N 180-914 56 finding Laboratory test 03/21/2013 [facility] PSA Diagnostic < 0.008 ng/ mL 0-4.0 57 finding [address] [place] [address] [phone] Laboratory test 12/12/2012 [facility] PSA Diagnostic 0.0 ng/mL 0-4.0 58 finding [address] [place] [address] [phone] Lipid Panel 08/10/2012 [facility] Triglycerides 72 mg/dL 40- 200 [address] [place] [address] [phone] Cholesterol 154 mg/dL Less than 200 HDL Cholesterol 44 mg/dL 40-60 59 Cholesterol/HDL Ratio 3.5 Average 1-4.44 LDL Cholesterol 95.6 mg/dL Less Than 100 60 Comp Metabolic Panel 08/10/2012 [facility] Sodium 141 mmol/L 133-145 [address] [place] [address] [phone] Potassium 4.1 mmol/L 3.5-5.0 Chloride 110 mmol/L 101-111 Co2 Carbon Dioxide 26.0 mmol/L 22-32 Anion Gap 5.0 mmol/L 2-11 Glucose 100 mg/dL 70-100 Blood Urea Nitrogen 19 mg/dL 6-24 Creatinine 0.90 mg/dL 0.50-1.40 BUN/Creatinine Ratio 21.1 High 8-20 Calcium 9.5 mg/dL 8.1-9.9 Total Protein 6.5 g/dL 6.2-8.1 Albumin 4.3 g/dL 3.2-5.2 Globulin 2.2 g/dL 2-4 Albumin/Globulin Ratio 2.0 1-3 Total Bilirubin 1.5 mg/dL 0.4-1.5 Alkaline Phosphatase 67 U/L 30-110 Alt 21 U/L 14-54 Ast 21 U/L 12-42 Egfr Non- 83.9 >60 Egfr 107.9 >60 61 Laboratory test 08/10/2012 [facility] Hemoglobin A1c 5.6 % Less than [address] [place] [address] [phone] Surgical 07/19/2012 [facility] S RUN [address] DATE: [place] [address] [phone] <SEE NOTE> Laboratory test 05/31/2012 [facility] PSA Diagnostic 4.96 High 0-4.0 [address] ng/[place] [address] [phone] Ua Routine 10/23/2011 [facility] Ua Specific 1.000 Ulm Ua PH 5.0 Ua Color yellow Ua Appera clear Ua Protein neg Ua Glucose neg Ua Ketones neg Ua Bilirubin neg Ua Urobilinogen neg Ua Nitrite neg Ua Occult Blood neg Lipid Profile 07/27/2011 [facility] Triglyceride 43 mg/dL 40- 200 (Trig/Chol/HDL) [address] [place] [address] [phone] Cholesterol 139 mg/dL Less Than 200 65 High Density Lipoprotein 43 mg/dL 40-60 66 Cholesterol/HDL Ratio 3.23 AVERAGE 1-4.97 Low Density Lipoprotein 87 mg/dL Less Than 100 67 Comp Metabolic Panel 07/27/2011 [facility] Sodium 139 mmol/L 135-[address] [place] [address] [phone] Potassium 4.1 mmol/L 3.5-5.0 Chloride 108 mmol/L 101-111 Co2 (Carbon Dioxide) 27.0 mmol/L 22-32 Anion Gap 4.0 mmol/L 2-11 68 Glucose 99 mg/dL 70-100 BUN 16 mg/dL 6-24 Creatinine 0.8 mg/dL 0.50-1.40 One Over Creatinine 1.25 BUN/Creatinine Ratio 20.0 8-20 Calcium 9.5 mg/dL 8.1-9.9 Total Protein 6.2 GM/DL 6.2-8.1 Albumin 4.2 GM/DL 3.2-5.2 Globulin 2.0 GM/DL 2-4 Albumin/Globulin Ratio 2.1 1-3 Bilirubin Total 1.4 mg/dL 0.4-1.5 69 Alkaline Phosphatase 64 U/L 39-117 Alt (SGPT) 21 U/L 17-63 Ast (Sgot) 20 U/L 12-42 eGFR Non- 96.4 > 60 eGFR 124.0 > 60 70 Laboratory test 07/27/2011 [facility] Hemoglobin A1c 6.1 % High Less [address] [place] [address] [phone] Laboratory test 07/27/2011 [facility] PSA,Diagnostic 4.09 High 0-[address] NG/[place] [address] [phone] Laboratory test 01/14/2011 [facility] PSA,Diagnostic 4.12 High 0-4 [address] NG/[place] [address] [phone] CBC Auto Diff 12/23/2010 [facility] White Blood 5.0 CUMM 4.8- 10.[address] [place] [address] [phone] Red Cell Count 4.79 CUMM 4.6-6.2 Hemoglobin 15.3 g/dL 14.0-18.0 Hematocrit 44 % 42-52 Mean Corpuscular Volume 92 um3 80-94 Mean Corpuscular Hemoglob 32 pg High 27-31 Mean Corpuscular HGB Cone 35 g/dL 32-36 Redcell Distribution WDTH 13 % 10.5-15 Platelet Count 186 CUMM 150-450 Mean Platelet Volume 8.5 um3 7.4-10.4 Gran % 60.5 % 38-83 Lymph % 24.8 % Low 25-47 Mononuclear % 10.4 % High 1-9 Eosinophil % 3.8 % 0-6 Basophil % 0.5 % 0-2 Abs Lymphs 1.2 1.0-4.8 Abs Mononuclear 0.5 0-0.8 Absolute Neutrophil Count 3.0 1.5-7.7 Abs Eosinophils 0.2 0-0.6 Abs Basophils 0 0-0.2 Protime 12/23/2010 [facility] Inr 0.99 0.82-1.[address] [place] [address] [phone] Protime 11.7 SEC 10.2-14.8 74 Lipid Panel - 07/15/2010 [facility] CPK (Creatine 127 U/L 0- [address] Kinase) [place] [address] [phone] CMP Panel 07/15/2010 [facility] Sodium 140 mmol/L 135-[address] [place] [address] [phone] Potassium 4.1 mmol/L 3.5-5.0 Chloride 110 mmol/L 101-111 Co2 (Carbon Dioxide) 26.0 mmol/L 22-32 Anion Gap 4.0 mmol/L 2-11 75 Glucose 98 mg/dL 70-100 BUN 15 mg/dL 6-24 Creatinine 0.80 mg/dL 0.50-1.40 One Over Creatinine 1.20 BUN/Creatinine Ratio 18.8 8-20 Calcium 9.2 mg/dL 8.1-9.9 Total Protein 6.3 GM/DL 6.2-8.1 Albumin 4.1 GM/DL 3.2-5.2 Globulin 2.2 GM/DL 2-4 Albumin/Globulin Ratio 1.9 1-3 Bilirubin Total 0.7 mg/dL 0.4-1.5 76 Alkaline Phosphatase 65 U/L 39-117 Alt (SGPT) 36 U/L 17-63 Ast (Sgot) 21 U/L 12-42 eGFR Non- 96.7 > 60 eGFR 124.4 > 60 77 Lipid Panel 07/15/2010 [facility] Triglyceride 79 mg/dL 40- [address] [place] [address] [phone] Cholesterol 148 mg/dL Less Than 200 78 High Density Lipoprotein 38 mg/dL Low 40-60 79 Cholesterol/HDL Ratio 3.89 AVERAGE 1-4.97 Low Density Lipoprotein 94 mg/dL Less Than 100 80 CMP Panel 01/20/2010 [facility] Sodium 138 mmol/L 135-145 [address] [place] [address] [phone] Potassium 4.3 mmol/L 3.5-5.0 Chloride 108 mmol/L 101-111 Co2 (Carbon Dioxide) 25.0 mmol/L 22-32 Anion Gap 5.0 mmol/L 2-11 81 Glucose 108 mg/dL High 70-100 82 BUN 15 mg/dL 6-24 Creatinine 0.90 mg/dL 0.50-1.40 One Over Creatinine 1.10 BUN/Creatinine Ratio 16.7 8-20 Calcium 9.4 mg/dL 8.1-9.9 Total Protein 6.6 GM/DL 6.2-8.1 Albumin 4.4 GM/DL 3.2-5.2 Globulin 2.2 GM/DL 2-4 Albumin/Globulin Ratio 2.0 1-3 Bilirubin Total 1.4 mg/dL 0.4-1.5 83 Alkaline Phosphatase 60 U/L 39-117 Alt (SGPT) 34 U/L 17-63 Ast (Sgot) 29 U/L 12-42 eGFR Non- 89.7 > 60 eGFR 108.6 > 60 84 Laboratory test 01/20/2010 [facility] PSA Screening 3.58 NG/ML 0-4 85 finding [address] [place] [address] [phone] Lipid Panel 07/08/2009 [facility] Triglyceride 100 mg/dL 40- 200 86 [address] [place] [address] [phone] Cholesterol 165 mg/dL Less Than 200 87 High Density Lipoprotein 39 mg/dL Low 40-60 88 Cholesterol/HDL Ratio 4.23 AVERAGE 1-4.97 Low Density Lipoprotein 106 mg/dL High Less Than 100 89 BMP Basic Metabolic 07/08/2009 [facility] Sodium 140 mmol/L 135-145 Panel [address] [place] [address] [phone] Potassium 4.2 mmol/L 3.5-5.0 Chloride 105 mmol/L 101-111 Co2 (Carbon Dioxide) 28.0 mmol/L 22-32 Anion Gap 7.0 mmol/L 2-11 90 Glucose 103 mg/dL High 70-100 91 BUN 14 mg/dL 6-24 Creatinine 1.00 mg/dL 0.50-1.40 One Over Creatinine 1.00 BUN/Creatinine Ratio 14.0 8-20 Calcium 9.3 mg/dL 8.1-9.9 92 eGFR Non- 79.7 > 60 eGFR 96.4 > 60 93 Hepatic Panel 07/08/2009 [facility] Total Protein 6.6 GM/DL 6.2-8.[address] [place] [address] [phone] Albumin 4.2 GM/DL 3.2-5.2 Globulin 2.4 GM/DL 2-4 Albumin/Globulin Ratio 1.8 1-3 Bilirubin Total 0.9 mg/dL 0.4-1.5 94 Bilirubin Direct 0.2 mg/dL 0.1-0.5 Indirect Bilirubin 0.7 mg/dL 0.1-0.75 Alkaline Phosphatase 71 U/L 39-117 Alt (SGPT) 25 U/L 17-63 Ast (Sgot) 19 U/L 12-42 Laboratory test 07/08/2009 [facility] PSA Screening 2.82 NG/ML 0-4 95 finding [address] [place] [address] [phone] Surgical 01/29/2009 [facility] Surgical 96 [address]ology [address] Pathology ---- <[place] [address] NOTE> [phone] Laboratory test 12/27/2008 [facility] PSA,Diagnostic 3.35 NG/ML 0-4 [address] [place] [address] [phone] Laboratory test 09/14/2008 [facility] Stool For NEGATIVE Negative finding [address] [place] [address] [phone] Stool For Blood 09/12/2008 [facility] Stool For NEGATIVE Negative [address] [place] [address] [phone] Stool For Blood 07/25/2008 [facility] Misc negative X3 Laboratory test 06/20/2008 [facility] CPK (Creatine 136 U/L 0 -[address] Kinase) [place] [address] [phone] PSA Screening 3.05 NG/ML 0-4 98 Liver Function 06/20/2008 [facility] Total Protein 6.6 GM/DL 6.2-8.1 Panel [address] [place] [address] [phone] Albumin 4.3 GM/DL 3.2-5.2 Globulin 2.3 GM/DL 2-4 Albumin/Globulin Ratio 1.9 1-3 Bilirubin Total 1.0 mg/dL 0.4-1.5 Bilirubin Direct 0.2 mg/dL 0.1-0.5 Indirect Bilirubin 0.8 mg/dL High 0.1-0.75 Alkaline Phosphatase 71 U/L 39-117 Alt (SGPT) 25 U/L 17-63 Ast (Sgot) 18 U/L 12-42 Lipid Profile 06/20/2008 [facility] Triglyceride 73 mg/dL 40- 200 (Trig/Chol/HDL) [address] [place] [address] [phone] Cholesterol 163 mg/dL Less Than 200 99 High Density Lipoprotein 38 mg/dL Low 40-60 100 Cholesterol/HDL Ratio 4.29 AVERAGE 1-4.97 Low Density Lipoprotein 110 mg/dL High Less Than 100 101 Basic Metabolic 06/20/2008 [facility] Sodium 134 mmol/L Low 135-145 Panel [address] [place] [address] [phone] Potassium 4.1 mmol/L 3.5-5.0 Chloride 103 mmol/L 101-111 Co2 (Carbon Dioxide) 25.0 mmol/L 22-32 Anion Gap 6.0 mmol/L 2-11 102 Glucose 84 mg/dL 70-100 103 BUN 20 mg/dL 6-24 Creatinine 1.00 mg/dL 0.50-1.40 One Over Creatinine 1.00 BUN/Creatinine Ratio 20.0 8-20 Calcium 9.2 mg/dL 8.1-9.9 104 Laboratory 01/04/2008 [facility] PSA,Diagnostic 2.25 0-4 105 test finding [address] [facility] NG/[place] [address] [phone] Laboratory 11/10/2007 [facility] TSH 2.05 0.34-5. test finding 101 [facility] MIU/ML [address] [place] [address] [phone] CBC With 11/10/2007 [facility] White Blood Count 4.6 CUMM Low 4.8-10. Electronic [address] 8 [place] [address] [phone] Red Cell Count 5.25 CUMM 4.6-6.2 Hemoglobin 16.4 g/dL 14.0-18.0 Hematocrit 47 % 42-52 Mean Corpuscular Volume 89 um3 80-94 Mean Corpuscular Hemoglob 31 pg 27-31 Mean Corpuscular HGB Cone 35 g/dL 32-36 Redcell Distribution WDTH 12 % 10.5-15 Platelet Count 203 CUMM 150-450 Mean Platelet Volume 7.6 um3 7.4-10.4 Gran % 59.0 % 38-83 Lymph % 23.9 % 20-45 Mononuclear % 13.5 % High 1-9 Eosinophil % 3.0 % 0-6 Basophil % 0.6 % 0-2 Abs Lymphs 1.1 1.0-4.8 Abs Mononuclear 0.6 0-0.8 Absolute Neutrophil Count 2.7 1.5-7.7 Abs Eosinophils 0.1 0-0.6 Abs Basophils 0 0-0.2 Laboratory test 08/24/2007 [facility] Stool For Blood NEGATIVE Negative finding [address] [place] [address] [phone] Laboratory test 08/23/2007 [facility] Stool For Blood NEGATIVE Negative finding [address] [place] [address] [phone] Stool For Blood 08/22/2007 [facility] Stool For Blood NEGATIVE Negative [address] [place] [address] [phone] Basic Metabolic 06/22/2007 [facility] One Over [address] [place] [address] [phone] Anion Gap 3.0 mmol/L 2-11 106 BUN 22 mg/dL 6-24 Calcium 9.0 mg/dL 8.7-10.2 Chloride 108 mmol/L 101-111 Co2 (Carbon Dioxide) 28.0 mmol/L 22-32 Glucose 97 mg/dL 70-105 Potassium 4.2 mmol/L 3.5-5.0 Sodium 139 mmol/L 135-145 BUN/Creatinine Ratio 22.0 High 8-20 Creatinine 1.0 mg/dL 0.5-1.4 Liver Function 06/22/2007 [facility] Albumin/Globulin Ratio 1.5 1-[address] [place] [address] [phone] Albumin 4.0 GM/DL 3.2-5.2 Alkaline Phosphatase 66 U/L 39-117 Alt (SGPT) 29 U/L 17-63 Ast (Sgot) 22 U/L 12-42 Bilirubin Direct 0.2 mg/dL 0.1-0.5 Globulin 2.6 GM/DL 2-4 Indirect Bilirubin 1.2 mg/dL High 0.1-0.75 Bilirubin Total 1.4 mg/dL 0.4-1.5 Total Protein 6.6 GM/DL 6.2-8.1 Lipid Profile 06/22/2007 [facility] Cholesterol/HDL 5.09 High 1-4.97 (Trig/Chol/HDL) [address] [place] [address] [phone] Cholesterol 173 mg/dL Less Than 200 107 Triglyceride 115 mg/dL 40-200 High Density Lipoprotein 34 mg/dL Low 40-60 108 Low Density Lipoprotein 116 mg/dL High Less Than 100 109 Laboratory test 06/22/2007 [facility] PSA Screening 2.54 NG/ML 0-4 [address] [place] [address] [phone] 1 Desirable: <150 Borderline High: 150-199 High: 200-499 Very High: >500 2 Desirable: <200 Borderline High: 200-239 High: >239 3 Low: <40 Desirable: 40-60 High: >60 4 Desirable: <100 Near Optimal: 100-129 Borderline High: 130-159 High: 160-189 Very High: >189 5 Because ethnic data is not always readily available, this report includes an eGFR for both -Americans and non- Americans. The National Kidney Disease Education Program (NKDEP) does not endorse the use of the MDRD equation for patients that are not between the ages of 18 and 70, are , have extremes of body size, muscle mass, or nutritional status, or are non- or non-. According to the National Kidney Foundation, irrespective of diagnosis, the stage of the disease is based on the level of kidney function: Stage Description GFR(mL/min/1.73 m(2)) 1 Kidney damage with normal or decreased GFR 90 2 Kidney damage with mild decrease in GFR 60-89 3 Moderate decrease in GFR 30-59 4 Severe decrease in GFR 15-29 5 Kidney failure <15 (or dialysis) 6 Therapeutic target for the treatment of diabetes mellitus patients is <7% HBA1C, and in selective patients <6.0%. Please refer to [place] [employer] diabetic care guidelines for further information. 7 Serum levels of PSA measured using the [employer] DXI Hybritech immunoassay should not be interpreted as absolute evidence of the presence or absence of disease. The PSA value should be used in conjunction with other pertinent clinical diagnostic procedures. A PSA value in the range of 0.1 to 0.6 ng/ml is indeterminate if being used as an indicator of recurrent or residual disease. The values obtained with different assay methods or kits cannot be used interchangeably. 8 Desirable: <150 Borderline High: 150-199 High: 200-499 Very High: >500 9 Desirable: <200 Borderline High: 200-239 High: >239 10 Low: <40 Desirable: 40-60 High: >60 11 Desirable: <100 Near Optimal: 100-129 Borderline High: 130-159 High: 160-189 Very High: >189 12 Because ethnic data is not always readily available, this report includes an eGFR for both -Americans and non- Americans. The National Kidney Disease Education Program (NKDEP) does not endorse the use of the MDRD equation for patients that are not between the ages of 18 and 70, are , have extremes of body size, muscle mass, or nutritional status, or are non- or non-. According to the National Kidney Foundation, irrespective of diagnosis, the stage of the disease is based on the level of kidney function: Stage Description GFR(mL/min/1.73 m(2)) 1 Kidney damage with normal or decreased GFR 90 2 Kidney damage with mild decrease in GFR 60-89 3 Moderate decrease in GFR 30-59 4 Severe decrease in GFR 15-29 5 Kidney failure <15 (or dialysis) 13 Serum levels of PSA measured using the [employer] DXI Hybritech immunoassay should not be interpreted as absolute evidence of the presence or absence of disease. The PSA value should be used in conjunction with other pertinent clinical diagnostic procedures. A PSA value in the range of 0.1 to 0.6 ng/ml is indeterminate if being used as an indicator of recurrent or residual disease. The values obtained with different assay methods or kits cannot be used interchangeably. 14 VTS Severe Sepsis and Septic Shock Management Bundle Measure requires all lactic acids initially measuring >2.0 mmol/L be repeated. 15 Because ethnic data is not always readily available, this report includes an eGFR for both -Americans and non- Americans. The National Kidney Disease Education Program (NKDEP) does not endorse the use of the MDRD equation for patients that are not between the ages of 18 and 70, are , have extremes of body size, muscle mass, or nutritional status, or are non- or non-. According to the National Kidney Foundation, irrespective of diagnosis, the stage of the disease is based on the level of kidney function: Stage Description GFR(mL/min/1.73 m(2)) 1 Kidney damage with normal or decreased GFR 90 2 Kidney damage with mild decrease in GFR 60-89 3 Moderate decrease in GFR 30-59 4 Severe decrease in GFR 15-29 5 Kidney failure <15 (or dialysis) 16 Acute inflammation: >10.00 17 FASTING 10 HOUR 18 Desirable <150 Borderline high 150-199 High 200-499 Very High >500 19 Desirable <200 Borderline high 200-239 High >239 20 Low <40 Desirable: 40-60 High: >60 21 Desirable: <100 mg/dL Near Optimal: 100-129 mg/dL Borderline High: 130-159 mg/dL High: 160-189 mg/dL Very High: >189 mg/dL 22 Because ethnic data is not always readily available, this report includes an eGFR for both -Americans and non- Americans. The National Kidney Disease Education Program (NKDEP) does not endorse the use of the MDRD equation for patients that are not between the ages of 18 and 70, are , have extremes of body size, muscle mass, or nutritional status, or are non- or non-. According to the National Kidney Foundation, irrespective of diagnosis, the stage of the disease is based on the level of kidney function: Stage Description GFR(mL/min/1.73 m(2)) 1 Kidney damage with normal or decreased GFR 90 2 Kidney damage with mild decrease in GFR 60-89 3 Moderate decrease in GFR 30-59 4 Severe decrease in GFR 15-29 5 Kidney failure <15 (or dialysis) 23 Serum levels of PSA measured using the [employer] DXI Hybritech immunoassay should not be interpreted as absolute evidence of the presence or absence of disease. The PSA value should be used in conjunction with other pertinent clinical diagnostic procedures. A PSA value in the range of 0.1 to 0.6 ng/ml is indeterminate if being used as an indicator of recurrent or residual disease. The values obtained with different assay methods or kits cannot be used interchangeably. 24 Serum levels of PSA measured using the [employer] DXI Hybritech immunoassay should not be interpreted as absolute evidence of the presence or absence of disease. The PSA value should be used in conjunction with other pertinent clinical diagnostic procedures. A PSA value in the range of 0.1 to 0.6 ng/ml is indeterminate if being used as an indicator of recurrent or residual disease. The values obtained with different assay methods or kits cannot be used interchangeably. 25 SEE RESULT BELOW Name: FRANCES NICHOLAS Theo : [address]: Surinder Sanotyo MD Acct: [id number] Unit: [id number] AGE: 70 Location: ENDO Re11/08/15 SEX: M Status: DEP REF SPEC: [id number] JUJU: 11/08/15-1410 [facility] DR: Surinder Santoyo MD REQ: [id number] RECD: 11/08/15 STATUS: EMA LEE DR: Ricky Morgan MD _ ORDERED: LEVEL IV/2 FINAL DIAGNOSIS 1. Colon, hepatic flexure, biopsy: -- Tubular adenoma. -- No high grade dysplasia or malignancy. 2. Colon, distal right, biopsy: -- Tubular adenoma. -- No high grade dysplasia or malignancy. CLINICAL HISTORY Bright red blood per rectum POST-OPERATIVE DIAGNOSIS Colonoscopy to cecum - haustra 3+. Conclusions/Plan: Diverticulosis - sigmoid greater than transverse greater than right; polyps; 4 years GROSS DESCRIPTION 1. The specimen is received in formalin labeled, Polyp at Hepatic Flexure, and consists of two speckled yellow brown polypoid soft tissue fragments measuring 0.5 x 0.4 x 0.3 cm and 0.7 x 0.6 x 0.3 cm. The specimen is differentially inked, bisected and entirely submitted in one cassette. 2. The specimen is received in formalin labeled, Biopsy Distal Right Colon Polyp, and consists of a 0.3 x 0.3 x 0.2 cm speckled bryant-brown irregular to polypoid soft tissue fragments, which is entirely submitted in one cassette. Signed (signature on file) Yoan Jordan MD 1051 END OF REPORT * ML=Testing performed at Main Lab DEPARTMENT OF PATHOLOGY, [address] [place] [address] Yoan Jordan M.D. Director [facility] # [id number] 26 Desirable <150 Borderline high 150-199 High 200-499 Very High >500 27 Desirable <200 Borderline high 200-239 High >239 28 Low <40 Desirable: 40-60 High: >60 29 Desirable: <100 mg/dL Near Optimal: 100-129 mg/dL Borderline High: 130-159 mg/dL High: 160-189 mg/dL Very High: >189 mg/dL 30 FASTING 10 HOUR 31 Serum levels of PSA measured using the [employer] DXI Hybritech immunoassay should not be interpreted as absolute evidence of the presence or absence of disease. The PSA value should be used in conjunction with other pertinent clinical diagnostic procedures. A PSA value in the range of 0.1 to 0.6 ng/ml is indeterminate if being used as an indicator of recurrent or residual disease. The values obtained with different assay methods or kits cannot be used interchangeably. 32 FASTING 10 HOUR 33 Therapeutic target for the treatment of diabetes Mellitus patients is <7% HBA1C, and in selective patients <6.0%.Please refer to [place] [employer] Diabetic care guidelines for further information. 34 Serum levels of PSA measured using the [employer] DXI Hybritech immunoassay should not be interpreted as absolute evidence of the presence or absence of disease. The PSA value should be used in conjunction with other pertinent clinical diagnostic procedures. A PSA value in the range of 0.1 to 0.6 ng/ml is indeterminate if being used as an indicator of recurrent or residual disease. The values obtained with different assay methods or kits cannot be used interchangeably. 35 Acute inflammation: >10.00 36 Reference Range and Interpretation: TnI (ng/mL) Interpretation Less Than 0.03 ng/mL Not supportive of diagnosis of RI 0.03 - 0.50 ng/mL Indeterminate: suggest serial studies if clinically indicated. Greater than 0.5 ng/mL Consistent with diagnosis of RI 37 Because ethnic data is not always readily available, this report includes an eGFR for both -Americans and non- Americans. The National Kidney Disease Education Program (NKDEP) does not endorse the use of the MDRD equation for patients that are not between the ages of 18 and 70, are , have extremes of body size, muscle mass, or nutritional status, or are non- or non-. According to the National Kidney Foundation, irrespective of diagnosis, the stage of the disease is based on the level of kidney function: Stage Description GFR(mL/min/1.73 m(2)) 1 Kidney damage with normal or decreased GFR 90 2 Kidney damage with mild decrease in GFR 60-89 3 Moderate decrease in GFR 30-59 4 Severe decrease in GFR 15-29 5 Kidney failure <15 (or dialysis) 38 SEE RESULT BELOW Name: FRANCES NICHOLAS : [address]: Andrew Islas MD Acct: [id number] Unit: [id number] AGE: 69 Location: ED Re12/27/14 SEX: M Status: REG ER SPEC: [id number] JUJU: 12/27/[address]: Andrew Islas MD REQ: [id number] RECD: 12/27/14 STATUS: JANN LEE DR: Ricky Morgan MD _ SOURCE: STOOL SPDESC: ORDERED: Hemoccult Procedure Result Verified Site Stool Occult Blood Final 12/27/14- 1225 ML Stool Occult Blood Negative * ML - MAIN LAB ([facility]) . END OF REPORT * ML=Testing performed at Main Lab DEPARTMENT OF PATHOLOGY, [address] [place] [address] Yoan Jordan M.D. Director [facility] # [id number] SEE RESULT BELOW Name: FRANCES NICHOLAS : [address]: Andrew Islas MD Acct: [id number] Unit: [id number] AGE: 69 Location: ED Re12/27/14 SEX: M Status: REG ER SPEC: [id number] JUJU: 12/27/[address]: Andrew Islas MD REQ: [id number] RECD: 12/27/14 STATUS: COMP OTHR DR: Ricky Morgan MD _ SOURCE: STOOL [facility]: ORDERED: Hemoccult Procedure Result Verified Site Stool Specimen Description Final 12/27/14- 1326 ML Stool Color Dark Brown Stool Form Nonformed Stool Consistency Soft Stool Occult Blood Final 12/27/14- 1339 ML Stool Occult Blood Negative * ML - MAIN LAB ([facility]) . END OF REPORT * ML=Testing performed at Main Lab DEPARTMENT OF PATHOLOGY, [address] [place] [address] Yoan Jordan M.D. Director [facility] # [id number] 40 Serum levels of PSA measured using the [employer] DXI Hybritech immunoassay should not be interpreted as absolute evidence of the presence or absence of disease. The PSA value should be used in conjunction with other pertinent clinical diagnostic procedures. A PSA value in the range of 0.1 to 0.6 ng/ml is indeterminate if being used as an indicator of recurrent or residual disease. The values obtained with different assay methods or kits cannot be used interchangeably. 41 Desirable <150 Borderline high 150-199 High 200-499 Very High >500 42 Desirable <200 Borderline high 200-239 High >239 43 Low <40 Desirable: 40-60 High: >60 44 Desirable: <100 mg/dL Near Optimal: 100-129 mg/dL Borderline High: 130-159 mg/dL High: 160-189 mg/dL Very High: >189 mg/dL 45 Because ethnic data is not always readily available, this report includes an eGFR for both -Americans and non- Americans. The National Kidney Disease Education Program (NKDEP) does not endorse the use of the MDRD equation for patients that are not between the ages of 18 and 70, are , have extremes of body size, muscle mass, or nutritional status, or are non- or non-. According to the National Kidney Foundation, irrespective of diagnosis, the stage of the disease is based on the level of kidney function: Stage Description GFR(mL/min/1.73 m(2)) 1 Kidney damage with normal or decreased GFR 90 2 Kidney damage with mild decrease in GFR 60-89 3 Moderate decrease in GFR 30-59 4 Severe decrease in GFR 15-29 5 Kidney failure <15 (or dialysis) 46 Acute inflammation: >10.00 47 Because ethnic data is not always readily available, this report includes an eGFR for both -Americans and non- Americans. The National Kidney Disease Education Program (NKDEP) does not endorse the use of the MDRD equation for patients that are not between the ages of 18 and 70, are , have extremes of body size, muscle mass, or nutritional status, or are non- or non-. According to the National Kidney Foundation, irrespective of diagnosis, the stage of the disease is based on the level of kidney function: Stage Description GFR(mL/min/1.73 m(2)) 1 Kidney damage with normal or decreased GFR 90 2 Kidney damage with mild decrease in GFR 60-89 3 Moderate decrease in GFR 30-59 4 Severe decrease in GFR 15-29 5 Kidney failure <15 (or dialysis) 48 Serum levels of PSA measured using the [employer] DXI Hybritech immunoassay should not be interpreted as absolute evidence of the presence or absence of disease. The PSA value should be used in conjunction with other pertinent clinical diagnostic procedures. A PSA value in the range of 0.1 to 0.6 ng/ml is indeterminate if being used as an indicator of recurrent or residual disease. The values obtained with different assay methods or kits cannot be used interchangeably. 49 Serum levels of PSA measured using the [employer] DXI Hybritech immunoassay should not be interpreted as absolute evidence of the presence or absence of disease. The PSA value should be used in conjunction with other pertinent clinical diagnostic procedures. A PSA value in the range of 0.1 to 0.6 ng/ml is indeterminate if being used as an indicator of recurrent or residual disease. The values obtained with different assay methods or kits cannot be used interchangeably. 50 Serum levels of PSA measured using the [employer] DXI Hybritech immunoassay should not be interpreted as absolute evidence of the presence or absence of disease. The PSA value should be used in conjunction with other pertinent clinical diagnostic procedures. A PSA value in the range of 0.1 to 0.6 ng/ml is indeterminate if being used as an indicator of recurrent or residual disease. The values obtained with different assay methods or kits cannot be used interchangeably. 51 Desirable <150 Borderline high 150-199 High 200-499 Very High >500 52 Desirable <200 Borderline high 200-239 High >239 53 Low <40 Desirable: 40-60 High: >60 54 Desirable <100 Near Optimal 100-129 Borderline high 130-159 High 160-189 Very High >189 55 Because ethnic data is not always readily available, this report includes an eGFR for both -Americans and non- Americans. The National Kidney Disease Education Program (NKDEP) does not endorse the use of the MDRD equation for patients that are not between the ages of 18 and 70, are , have extremes of body size, muscle mass, or nutritional status, or are non- or non-. According to the National Kidney Foundation, irrespective of diagnosis, the stage of the disease is based on the level of kidney function: Stage Description GFR(mL/min/1.73 m(2)) 1 Kidney damage with normal or decreased GFR 90 2 Kidney damage with mild decrease in GFR 60-89 3 Moderate decrease in GFR 30-59 4 Severe decrease in GFR 15-29 5 Kidney failure <15 (or dialysis) 56 Normal Range 180 to 914 Indeterminate Range 145 to 180 Deficient Range <145 57 Serum levels of PSA measured using the [employer] DXI Hybritech immunoassay should not be interpreted as absolute evidence of the presence or absence of disease. The PSA value should be used in conjunction with other pertinent clinical diagnostic procedures. A PSA value in the range of 0.1 to 0.6 ng/ml is indeterminate if being used as an indicator of recurrent or residual disease. The values obtained with different assay methods or kits cannot be used interchangeably. 58 Serum levels of PSA measured using the [employer] DXI Hybritech immunoassay should not be interpreted as absolute evidence of the presence or absence of disease. The PSA value should be used in conjunction with other pertinent clinical diagnostic procedures. A PSA value in the range of 0.1 to 0.6 ng/ml is indeterminate if being used as an indicator of recurrent or residual disease. The values obtained with different assay methods or kits cannot be used interchangeably. 59 HDL Interpretation: Undesirable: High Risk: Less than 40 mg/dL Desirable: Low Risk: Greater than 60 mg/dL 60 LDL Interpretation: Low Risk Optimal Level: LDL Less than 100 mg/dL Near or Above Optimal: LDL 100-129 mg/dL Borderline High Risk: LDL 130-159 mg/dL High Risk: LDL 160-189 mg/dL Very High Risk: LDL Greater than 189 mg/dL 61 Because ethnic data is not always readily available, this report includes an eGFR for both -Americans and non- Americans. The National Kidney Disease Education Program (NKDEP) does not endorse the use of the MDRD equation for patients that are not between the ages of 18 and 70, are , have extremes of body size, muscle mass, or nutritional status, or are non- or non-. According to the National Kidney Foundation, irrespective of diagnosis, the stage of the disease is based on the level of kidney function: Stage Description GFR(mL/min/1.73 m(2)) 1 Kidney damage with normal or decreased GFR 90 2 Kidney damage with mild decrease in GFR 60-89 3 Moderate decrease in GFR 30-59 4 Severe decrease in GFR 15-29 5 Kidney failure <15 (or dialysis) 62 Therapeutic target for the treatment of diabetes Mellitus patients is <7% HBA1C, and in selective patients <6.0%.Please refer to [place] [employer] Diabetic care guidelines for further information. 63 RUN DATE: 07/20/12 [facility] LAB LIVE PAGE 1 RUN TIME: 1260 [address] [place], [place] [address] Specimen Inquiry Name: FRANCES NICHOLAS : [address]: Abhishek Anne MD Acct: [id number] Unit: [id number] AGE: 66 Location: [facility] Re07/19/12 SEX: M Status: REG REF SPEC: [id number] JUJU: 07/19/12- SUBM DR: Abhishek Anne MD REQ: [id number] RECD: 07/19/124 STATUS: EMA LEE DR: Ricky Morgan MD _ ORDERED: LEVEL IV/4 FINAL DIAGNOSIS 1. Prostate, left apex, core biopsies: A. Benign prostate tissue. B. No evidence of malignancy identified. 2. Prostate, left base, core biopsies: A. Prostatic adenocarcinoma, small acinar type. 1. [place] Score: 4 + 5=9. 2. Extent of Local Invasion: Tumor involves one small focus on one of three cores, measures 0.5 mm. in maximal dimension, and occupies less than 5% of total core length. 3. Perineural Invasion: Not seen. 4. Angiolymphatic Invasion: Not seen. B. Other findings: None. 3. Prostate, right apex, core biopsies: A. Prostatic adenocarcinoma, small acinar type. 1. Nichelle Score: 4 + 3=7. 2. Extent of Local Invasion: Tumor involves one focus on one of three cores, measures 2.0 mm. in maximal span, and occupies 15% of total core length. 3. Perineural invasion: Not seen. 4. Angiolymphatic Invasion: Not seen. B. Other findings: None. 4. Prostate, right base, core biopsies: A. Prostatic adenocarcinoma, small acinar type. 1. Nichelle Score: 3 + 3=6. 2. Extent of Local Invasion: Tumor involves one minute focus on one of three cores, measures less than 0.1 mm. in maximal span, and occupies less than 2% of total core length. 3. Perineural Invasion: Not seen. 4. Angiolymphatic Invasion: Not seen. B. Other findings: High grade prostatic intraepithelial neoplasia. CONTINUED ON NEXT PAGE * ML=Testing performed at Main Lab DEPARTMENT OF PATHOLOGY, [facility] [employer] [place], [place] [address] Yoan Jordan M.D. Director [facility] Permit #[id number] RUN DATE: 07/20/12 [facility] LAB LIVE PAGE 2 RUN TIME: 3686 [facility] [address] [place], [place] [address] Specimen Inquiry Patient: FRANCES NICHOLAS [id number] (Continued) FINAL DIAGNOSIS (Continued) CLINICAL HISTORY 6/10/03 - benign prostatic hypertrophy, 01/29/09 - prostatic intraepithelial neoplasia. PRE-OPERATIVE DIAGNOSIS PSA elevation, moderate enlarged prostate; PSA - 4.96 POST-OPERATIVE DIAGNOSIS GROSS DESCRIPTION 1. The specimen is received in formalin labeled Frances Nicholas, Left Prostate Lobe Winslow, and consists of three, bryant, soft tissue cores measuring 1.7 cm., 1.2 cm., and 0.8 x 0.1 cm. Submitted entirely, one cassette. 2. The specimen is received in formalin labeled Frances Nicholas, Left Prostate Lobe Base, and consists of three, bryant, soft tissue cores measuring 1.3 cm., 1.3 cm., and 1.2 x 0.1 cm. Submitted entirely, one cassette. 3. The specimen is received in formalin labeled Frances Nicholas, Right Prostate Lobe Winslow, and consists of three, bryant, soft tissue cores measuring 1.3 cm., 1.3 cm., and 1.2 x 0.1 cm. Submitted entirely, one cassette. 4. The specimen is received in formalin labeled Frances Nicholas, Right Prostate Lobe Base, and consists of three, bryant, soft tissue cores measuring 2.5 cm., 1.3 cm., and 1.2 x 0.1 cm. Submitted entirely, one cassette. Signed (signature on file) Yoan Jordan MD [id number] END OF REPORT * ML=Testing performed at Main Lab DEPARTMENT OF PATHOLOGY, [address] [place] [address] Yoan Jordan M.D. Director [facility] Permit #[id number] 64 Serum levels of PSA measured using the [employer] DXI Hybritech immunoassay should not be interpreted as absolute evidence of the presence or absence of disease. The PSA value should be used in conjunction with other pertinent clinical diagnostic procedures. The values obtained with different assay methods or kits cannot be used interchangeably. 65 CHOLESTEROL INTERPRETATION: Desirable: Less than 200 MG/DL Borderline-High Risk: 200-239 MG/DL High-Risk: 240 MG/DL and over 66 HDL INTERPRETATION: Undesirable: High Risk: Less than 40 MG/DL Desirable: Low Risk: Greater than 60 MG/DL 67 LDL INTERPRETATION: Low Risk Optimal Level: LDL Less than 100 MG/DL Near or Above Optimal: LDL 100-129 MG/DL Borderline High Risk: LDL 130-159 MG/DL High Risk: LDL 160-189 MG/DL Very High Risk: LDL Greater than 189 MG/DL 68 Anion gap measurement may be of limited value in the presence of any alkalosis, especially in a combined acid base disorder. . 69 A metabolite of Naproxen, O-desmethylnaproxen, has been shown to interfere with the Jendrassik-Samsula-[place] method for measuring total bilirubin. Samples from patients who have taken Naproxen have shown spurious elevation in total bilirubin levels. 70 Because ethnic data is not always readily available, this report includes an eGFR for both -Americans and non- Americans. The National Kidney Disease Education Program (NKDEP) does not endorse the use of the MDRD equation for patients that are not between the ages of 18 and 70, are , have extremes of body size, muscle mass, or nutritional status, or are non- or non-. According to the National Kidney Foundation, irrespective of diagnosis, the stage of the disease is based on the level of kidney function: Stage Description GFR(mL/min/1.73 m(2)) 1 Kidney damage with normal or decreased GFR 90 2 Kidney damage with mild decrease in GFR 60-89 3 Moderate decrease in GFR 30-59 4 Severe decrease in GFR 15-29 5 Kidney failure <15 (or dialysis) 71 THERAPEUTIC TARGET FOR THE TREATMENT OF DIABETES MELLITUS PATIENTS IS <7% HBA1C, AND IN SELECTIVE PATIENTS <6.0%. PLEASE REFER TO [place] [employer] DIABETIC CARE GUIDELINES FOR FURTHER INFORMATION. 72 * SERUM LEVELS OF PSA MEASURED USING THE [employer] ACCESS HYBRITECH IMMUNOASSAY SHOULD NOT BE INTERPRETED ABSOLUTE EVIDENCE OF THE PRESENCE OR ABSENCE OF DISEASE. THE PSA VALUE SHOULD BE USED IN CONJUNCTION WITH OTHER PERTINENT CLINICAL DIAGNOSTIC PROCEDURES. 73 Recommended INR for Patients on Oral Anticoagulants Prophylaxis 2.0 - 3.0 Treatment of thrombosis 2.0 - 3.0 Prevention of embolism 2.0 - 3.0 Prevention of embolism from prosthetic heart valves 2.5 - 3.5 74 DIAGNOSIS,TREATMENT,AND THERAPY MUST BE BASED ON THE INR VALUE ALONE. 75 Anion gap measurement may be of limited value in the presence of any alkalosis, especially in a combined acid base disorder. . 76 A metabolite of Naproxen, O-desmethylnaproxen, has been shown to interfere with the Jendrassik-Rossy method for measuring total bilirubin. Samples from patients who have taken Naproxen have shown spurious elevation in total bilirubin levels. 77 Because ethnic data is not always readily available, this report includes an eGFR for both -Americans and non- Americans. The National Kidney Disease Education Program (NKDEP) does not endorse the use of the MDRD equation for patients that are not between the ages of 18 and 70, are , have extremes of body size, muscle mass, or nutritional status, or are non- or non-. According to the National Kidney Foundation, irrespective of diagnosis, the stage of the disease is based on the level of kidney function: Stage Description GFR(mL/min/1.73 m(2)) 1 Kidney damage with normal or decreased GFR 90 2 Kidney damage with mild decrease in GFR 60-89 3 Moderate decrease in GFR 30-59 4 Severe decrease in GFR 15-29 5 Kidney failure <15 (or dialysis) 78 CHOLESTEROL INTERPRETATION: Desirable: Less than 200 MG/DL Borderline-High Risk: 200-239 MG/DL High-Risk: 240 MG/DL and over 79 HDL INTERPRETATION: Undesirable: High Risk: Less than 40 MG/DL Desirable: Low Risk: Greater than 60 MG/DL 80 LDL INTERPRETATION: Low Risk Optimal Level: LDL Less than 100 MG/DL Near or Above Optimal: LDL 100-129 MG/DL Borderline High Risk: LDL 130-159 MG/DL High Risk: LDL 160-189 MG/DL Very High Risk: LDL Greater than 189 MG/DL 81 Anion gap measurement may be of limited value in the presence of any alkalosis, especially in a combined acid base disorder. . 82 Note change in reference range as of 11/10/07. The change was based on recommendations from the [place] [employer]. 83 A metabolite of Naproxen, O-desmethylnaproxen, has been shown to interfere with the Jendrassik-Samsula-[place] method for measuring total bilirubin. Samples from patients who have taken Naproxen have shown spurious elevation in total bilirubin levels. 84 Because ethnic data is not always readily available, this report includes an eGFR for both -Americans and non- Americans. The National Kidney Disease Education Program (NKDEP) does not endorse the use of the MDRD equation for patients that are not between the ages of 18 and 70, are , have extremes of body size, muscle mass, or nutritional status, or are non- or non-. According to the National Kidney Foundation, irrespective of diagnosis, the stage of the disease is based on the level of kidney function: Stage Description GFR(mL/min/1.73 m(2)) 1 Kidney damage with normal or decreased GFR 90 2 Kidney damage with mild decrease in GFR 60-89 3 Moderate decrease in GFR 30-59 4 Severe decrease in GFR 15-29 5 Kidney failure <15 (or dialysis) 85 * SERUM LEVELS OF PSA MEASURED USING THE [employer] ACCESS HYBRITECH IMMUNOASSAY SHOULD NOT BE INTERPRETED ABSOLUTE EVIDENCE OF THE PRESENCE OR ABSENCE OF DISEASE. THE PSA VALUE SHOULD BE USED IN CONJUNCTION WITH OTHER PERTINENT CLINICAL DIAGNOSTIC PROCEDURES. 86 FASTING 87 CHOLESTEROL INTERPRETATION: Desirable: Less than 200 MG/DL Borderline-High Risk: 200-239 MG/DL High-Risk: 240 MG/DL and over 88 HDL INTERPRETATION: Undesirable: High Risk: Less than 40 MG/DL Desirable: Low Risk: Greater than 60 MG/DL 89 LDL INTERPRETATION: Low Risk Optimal Level: LDL Less than 100 MG/DL Near or Above Optimal: LDL 100-129 MG/DL Borderline High Risk: LDL 130-159 MG/DL High Risk: LDL 160-189 MG/DL Very High Risk: LDL Greater than 189 MG/DL 90 Anion gap measurement may be of limited value in the presence of any alkalosis, especially in a combined acid base disorder. . 91 Note change in reference range as of 11/10/07. The change was based on recommendations from the [place] [employer]. 92 Please note change in reference range effective 07 . 93 Because ethnic data is not always readily available, this report includes an eGFR for both -Americans and non- Americans. The National Kidney Disease Education Program (NKDEP) does not endorse the use of the MDRD equation for patients that are not between the ages of 18 and 70, are , have extremes of body size, muscle mass, or nutritional status, or are non- or non-. According to the National Kidney Foundation, irrespective of diagnosis, the stage of the disease is based on the level of kidney function: Stage Description GFR(mL/min/1.73 m(2)) 1 Kidney damage with normal or decreased GFR 90 2 Kidney damage with mild decrease in GFR 60-89 3 Moderate decrease in GFR 30-59 4 Severe decrease in GFR 15-29 5 Kidney failure <15 (or dialysis) 94 A metabolite of Naproxen, O-desmethylnaproxen, has been shown to interfere with the Jendrassik-Samsula-[place] method for measuring total bilirubin. Samples from patients who have taken Naproxen have shown spurious elevation in total bilirubin levels. 95 * SERUM LEVELS OF PSA MEASURED USING THE [employer] ACCESS HYBRITECH IMMUNOASSAY SHOULD NOT BE INTERPRETED ABSOLUTE EVIDENCE OF THE PRESENCE OR ABSENCE OF DISEASE. THE PSA VALUE SHOULD BE USED IN CONJUNCTION WITH OTHER PERTINENT CLINICAL DIAGNOSTIC PROCEDURES. 96 ---- RUN DATE: 01/31/09 [facility] NMI LIVE PAGE 1 RUN TIME: 1434 Specimen Inquiry RUN USER: INTERFACE -- Name: FRANCES NICHOLAS Status: REG REF Re01/29/09 Age/Sex: 63/M Unit#: [id number] Location: [facility]. : 43 -- Specimen: [id number] Spec Date: 01/29/[address]: Abhishek Gaston i, MD Spec Type: SURGICAL P Received: 01/30/09 Copies to: Ricky louise MD SPECIMEN 1) LEFT LOBE PROSTATE BIOPSY APEX (APEX 3) 2) LEFT LOBE PROSTATE BIOPSY BASE (BASE 3) 3) RIGHT LOBE PROSTATE BIOPSY APEX (APEX 3) 4) RIGHT LOBE PROSTATE BIOPSY BASE (BASE 3) HISTORY PRE-OP DIAGNOSIS: PSA progression and elevation. POST-OP DIAGNOSIS: PSA 3.35. CLINICAL INFORMATION: 08/22 Benign hypertrophy prostate. GROSS DESCRIPTION 1) The specimen is received in formalin labelled Frances Nicholas, Left Prostate Lobe Winslow, and consists of three, bryant, soft tissue cores measuring 1.9 cm., 1.8 cm., and 1.8 x 0.1 cm. Submitted entirely, one cassette. 2) The specimen is received in formalin labelled Frances Nicholas, Left Prostate Lobe Base, and consists of three, bryant, soft tissue cores measuring 1.5 cm., 1.5 cm., and 1.8 x 0.1 cm. Submitted entirely, one cassette. 3) The specimen is received in formalin labelled Frances Nicholas, Right Prostate Lobe Winslow, and consists of three, bryant, soft tissue cores measuring 1.4 cm., 1.3 cm., and 1.3 x 0.1 cm. Submitted entirely, one cassette. 4) The specimen is received in formalin labelled Frances Nicholas, Right Prostate Lobe Base, and consists of three, bryant, soft tissue cores measuring 1.5 cm., 1.9 cm., and 1.9 x 0.1 cm. Submitted entirely, one cassette. -- DEPARTMENT OF PATHOLOGY, [address] [place] [address] [facility] Permit #[id number] Harvey Xiao M.D. Deposition Operator Dir bhavna -- -- RUN DATE: 01/31/09 [facility] NMI LIVE PAGE 2 RUN TIME: 1431 Specimen Inquiry RUN USER: INTERFACE -- Name: FRANCES NICHOLAS Status: REG REF Re01/29/09 Age/Sex: 63/M Unit#: [id number] Location: [facility] : 43 -- -- CONTINUED -- DIAGNOSIS 1) Prostate, left apex, core biopsies: A. Benign prostate tissue. B. No evidence of neoplasia identified. 2) Prostate, left base, core biopsies: A. Focal high grade prostatic intraepithelial neoplasia. B. No invasive carcinoma identified. 3) Prostate, right apex, core biopsies: A. Benign prostate tissue. B. No evidence of neoplasia identified. 4) Prostate, right base, core biopsies: A. Focal high grade prostatic intraepithelial neoplasia. B. No invasive carcinoma identified. Signed Electronically by: YOAN JORDAN MD 01/31/09 1434 -- -- DEPARTMENT OF PATHOLOGY, [address] [place] [address] [facility] Permit #[id number] Harvey Xiao M.D. Deposition Operator Dir bhavna -- 97 * SERUM LEVELS OF PSA MEASURED USING THE JEAN Dial2Do ACCESS HYBRITECH IMMUNOASSAY SHOULD NOT BE INTERPRETED ABSOLUTE EVIDENCE OF THE PRESENCE OR ABSENCE OF DISEASE. THE PSA VALUE SHOULD BE USED IN CONJUNCTION WITH OTHER PERTINENT CLINICAL DIAGNOSTIC PROCEDURES. 98 * SERUM LEVELS OF PSA MEASURED USING THE JEAN Dial2Do ACCESS HYBRITECH IMMUNOASSAY SHOULD NOT BE INTERPRETED ABSOLUTE EVIDENCE OF THE PRESENCE OR ABSENCE OF DISEASE. THE PSA VALUE SHOULD BE USED IN CONJUNCTION WITH OTHER PERTINENT CLINICAL DIAGNOSTIC PROCEDURES. 99 CHOLESTEROL INTERPRETATION: Desirable: Less than 200 MG/DL Borderline-High Risk: 200-239 MG/DL High-Risk: 240 MG/DL and over 100 HDL INTERPRETATION: Undesirable: High Risk: Less than 40 MG/DL Desirable: Low Risk: Greater than 60 MG/DL 101 LDL INTERPRETATION: Low Risk Optimal Level: LDL Less than 100 MG/DL Near or Above Optimal: LDL 100-129 MG/DL Borderline High Risk: LDL 130-159 MG/DL High Risk: LDL 160-189 MG/DL Very High Risk: LDL Greater than 189 MG/DL 102 Anion gap measurement may be of limited value in the presence of any alkalosis, especially in a combined acid base disorder. . 103 Note change in reference range as of 11/10/07. The change was based on recommendations from the [place] [employer]. 104 Please note change in reference range effective 07 . 105 * SERUM LEVELS OF PSA MEASURED USING THE JEAN Dial2Do ACCESS HYBRITECH IMMUNOASSAY SHOULD NOT BE INTERPRETED ABSOLUTE EVIDENCE OF THE PRESENCE OR ABSENCE OF DISEASE. THE PSA VALUE SHOULD BE USED IN CONJUNCTION WITH OTHER PERTINENT CLINICAL DIAGNOSTIC PROCEDURES. 106 Anion gap measurement may be of limited value in the presence of any alkalosis, especially in a combined acid base disorder. . 107 CHOLESTEROL INTERPRETATION: Desirable: Less than 200 MG/DL Borderline-High Risk: 200-239 MG/DL High-Risk: 240 MG/DL and over 108 HDL INTERPRETATION: Undesirable: High Risk: Less than 40 MG/DL Desirable: Low Risk: Greater than 60 MG/DL 109 LDL INTERPRETATION: Low Risk Optimal Level: LDL Less than 100 MG/DL Near or Above Optimal: LDL 100-129 MG/DL Borderline High Risk: LDL 130-159 MG/DL High Risk: LDL 160-189 MG/DL Very High Risk: LDL Greater than 189 MG/DL 110 * SERUM LEVELS OF PSA MEASURED USING THE JEAN URSULA ACCESS HYBRITECH IMMUNOASSAY SHOULD NOT BE INTERPRETED ABSOLUTE EVIDENCE OF THE PRESENCE OR ABSENCE OF DISEASE. THE PSA VALUE SHOULD BE USED IN CONJUNCTION WITH OTHER PERTINENT CLINICAL DIAGNOSTIC PROCEDURES. Procedures Date Code Description Status 02/02/2017 94535 Anoscopy Completed 11/08/2015 98934672 Colonoscopy Completed 08/24/2012 66416 Treadmill Interp/Report Only Completed 08/24/2012 14965 Stress Test Supervsn W/Out I/R Completed 10/23/2011 68679 Screening Vision Test Completed 07/08/2011 [id number] Colonoscopy Completed 07/21/2010 97411 EKG Tracing & Interpretation Completed 07/05/2008 64464 EKG Tracing & Interpretation Completed 07/08/2006 [id number] Colonoscopy Completed Encounters Type Date Location Provider Dx Diagnosis Office Visit 03/18/2018 [facility] Internal Ricky Morgan, J40 Bronchitis, not 2:40p Medicine - Suite Kaelyn Gabriel,FACP specified as acute or chronic K62.5 Hemorrhage of anus and rectum Office Visit 02/02/2017 11:00a Surgical Marcos Pak K62.89 Other specified [facility] M.D. 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 habit Office Visit 08/30/2015 10:00a [facility] Internal Ricky Yuan Z00.00 Encntr for Medicine - [facility] general adult Kaelyn Gabriel,FACP medical exam w/o abnormal findings R73.01 Impaired fasting glucose C61 Malignant neoplasm of prostate E78.2 Mixed hyperlipidemia Office Visit 03/05/2015 9:10a [facility] Internal Ricky D. C61 [facility] neoplasm of prostate R73.01 Impaired fasting glucose Office Visit 12/28/2014 1:40p [facility] Internal Ricky Yuan K57.32 Dvtrcli of lg int Jelly Morgan M.D.,FACP w/o perforation or Suite R abscess w/o bleeding Office Visit 10/22/2014 11:00a [facility] Internal Rivera Serrano 709.9 Skin & Jelly Millard M.D. Subcutaneous Ccm[facility] Tissue Disorders Unspec 913.4 Injury Superficial Insect Bite Elbow Forearm Wrist W/O Infec Office Visit 09/28/2014 4:00p [facility] Internal Galdino Changino, 728.89 Muscle Disorders Medicine - Suite Kelsi. Other R 728.85 Spasm Muscle Office Visit 08/24/2013 8:30a [facility] Internal Ricky Yuan V70.0 Examination Jelly Morgan M.D.,[facility] General Medical C[facility] Routine AT Health Care Facility 272.4 Hyperlipidemia Other Unspec 185 Malignant Neoplasm Prostate 386.19 Vertigo Aural & Otogenic Other Office Visit 06/21/2013 3:00p [facility] Internal Ricky Yuan 780.4 Dizziness & Jelly Morgan M.D.,[facility] Giddiness Ccmob Office Visit 06/09/2013 2:20p [facility] Internal Jennifer Nicholas, 461.1 Sinusitis Acute Medicine - Harvey Frontal Ccmob Office Visit 09/21/2012 3:00p [facility] Internal Zuleima Florence, 780.52 Insomnia Medicine - N.P. Unspecified Ccmob Office Visit 08/19/2012 10:00a [facility] Internal Ricky Yuan V70.0 Examination Jelly Morgan M.D.,[facility] General Medical C[facility] Routine AT Health Care Facility 185 Malignant Neoplasm Prostate 272.2 Hyperlipidemia Mixed 780.4 Dizziness & Giddiness Office Visit 02/08/2012 [facility] Internal Ricky Yuan 578.1 Blood In Stool 2:00p Jelly Morgan M.D.,[facility] Melena Ccmob Office Visit 01/27/2011 DO Not Use Eben Betancourt 381.00 Otitis Media 10:40a AT Cecelia Galan M.D. Nonsuppurative Acute Unspec Office Visit 12/31/2010 DO Not Use Eben Yuan 923.03 Contusion Upper Arm 4:20p AT Cecelia Morgan M.D.,FACP Office Visit 12/23/2010 DO Not Use Physical Sciences Instructor Zuleima Jeterll, 782.7 Ecchymoses 3:15p [facility] N.PRudolph Spontaneous Office Visit 09/03/2010 DO Not Use Physical Sciences Instructor Ricky Yuan 786.52 Painful Respiration 9:40a AT Cecelia Morgan M.D.,FACP Office Visit 07/21/2010 DO Not Use Physical Sciences Instructor Ricky Yuan V70.0 Examination General 3:00p AT Cecelia Morgan M.D.,[facility] Medical Routine AT Health Care Facility 272.2 Hyperlipidemia Mixed 790.21 Impaired Fasting Glucose 786.59 Pain Chest Other V03.89 Bacterial Diseases Single Vaccination Spec Other Office Visit 07/16/2009 10:00a DO Not Use Physical Sciences Instructor Ricky Yuan 790.21 Impaired AT Cecelia Morgan M.D.,[facility] Fasting Glucose 272.2 Hyperlipidemia Mixed 185 Malignant Neoplasm Prostate Office Visit 09/10/2008 DO Not Use Physical Sciences Instructor Thananart, V16.0 History Family 9:20a AT Cecelia Willis M.D. Malignant Neoplasm Gastrointestinal Tract 786.59 Pain Chest Other Office Visit 07/05/2008 10:20a DO Not Use Physical Sciences Instructor Thankikart, V70.0 Examination AT Cecelia Willis M.D. General Medical Routine AT Health Care Facility 786.59 Pain Chest Other Office Visit 11/10/2007 11:30a DO Not Use Physical Sciences Instructor Alicert, 789.0 Abdominal Pain AT eCcelia Willis M.D. 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 at [facility] Internal Medicine - Ccmob06/ - Rivera Millard M.D.Z00.00 Encounter for general adult medical examination without abnoComments:Discussed the new shingles vaccine; other shots current. (+) dental, eye exams. Colon exam due again in early 2019. Discussed lack of protective effect for primary prevention with low dose ASA and fish oil supplements. BP borderline today; regular home BP checks advised over the next month; send in readings for reviewFollow up:yearly or prnE78.2 Mixed hyperlipidemiaComments:On Rx; LDL 89. Diet, weight loss ecmqzgyD55.46 Personal history of malignant neoplasm of prostateComments:PSA zero with urology masshjlE06.11 Encounter for screening for malignant neoplasm of colonReferral:Surinder Santoyo MD, XcgzeeiheqymiiuvL07.01 Impaired fasting glucoseComments:Glucose 101, A1c normal. Diet Rx only
[2018-10-04 00:11] LABS: ABS Eosinophils 0.2 10^3/ul (0-0.6); ABS Neutrophils 7.1 10^3/ul (1.5-7.7); Eosinophil % 2.2 %; Hematocrit 42 % (42-52); Hemoglobin 14.4 g/dL (14.0-18.0); Lymphocyte % 10.3 %; Mean Corpuscular HGB Conc 34 g/dL (31-36); Mean Corpuscular Hemoglobin 31 pg (27-31); Mean Corpuscular Volume 91 fL (80-94); Mean Platelet Volume 7.5 fL (7.4-10.4); Platelet Count 169 10^3/uL (150-450); Red Blood Count 4.63 10^6 /uL (4.18-5.48); Red Cell Distribution Width 13 % (10-15); White Blood Count 9.3 10^3/uL (3.5-10.8)
[2018-10-04 00:24] LABS: Urine Appearance Clear; Urine Bacteria Absent (Absent); Urine Bilirubin Negative (Negative); Urine Blood 1+ (Negative); Urine Color Yellow; Urine Glucose Negative (Negative); Urine Ketones Negative (Negative); Urine Nitrite Negative (Negative); Urine Protein Negative (Negative); Urine Red Blood Cell 2+(6-10/hpf) (Absent); Urine Specific Gravity 1.021 (1.010-1.030); Urine Urobilinogen Negative (Negative); Urine White Blood Cell Absent (Absent)
[2018-10-04 00:25] LABS: Albumin 4.1 g/dL (3.2-5.2); Albumin/Globulin Ratio 1.9 (1-3); BUN/Creatinine Ratio 27.9 (8-20); C Reactive Protein 18.7 mg/L (<8.01); EGFR African American 105.2 (>60); EGFR Non-African American 86.9 (>60); Globulin 2.2 g/dL (2-4); Potassium 4.1 mmol/L (3.5-5.0); Total Bilirubin 0.4 mg/dL (0.2-1.0); Total Protein 6.3 g/dL (6.4-8.9)
--- NOTE | 2018-10-04 00:27 | ED ---
Abdominal Pain/Male - HPI Summary HPI Summary: Patient complains of sudden onset right lower quadrant pain tonight and acute left side lower back pain which started 2 days ago after patient was working on his trailer. Abdominal pain is constant, described as a dull ache. 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 Denies fever, cough, sore throat, CV, SOB, N/V/D, change in urine, change in BM. Medical history is none. Abdominal surgical history is none. - History of Current Complaint Chief Complaint: EDAbdPain Stated Complaint: ABD PAIN PER PT Time Seen by Provider: 10/03/18 23:45 Hx Obtained From: Patient Onset/Duration: Sudden Onset Timing: Constant Severity Initially: Moderate Severity Currently: Moderate Pain Intensity: 4 Pain Scale Used: 0-10 Numeric Location: Discrete At: RLQ Radiates: No Character: Dull Aggravating Factor(s): Nothing Alleviating Factor(s): Nothing Associated Signs And Symptoms: Positive: Negative - Allergies/Home Medications Allergies/Adverse Reactions: Allergies Allergy/AdvReac Type Severity Reaction Status Date / Time nitroglycerin Allergy Headache Verified 10/03/18 23:25 PMH/Surg Hx/FS Hx/Imm Hx Endocrine/Hematology History: Denies: Hx Diabetes Cardiovascular History: Reports: Hx Angina - WITH EATING. LAST TIME 2012 Denies: Hx Congestive Heart Failure, Hx Hypertension, Hx Pacemaker/ICD GI History: Reports: Hx Diverticulosis History: Reports: Hx Kidney Stones - 5 YRS AGO, Other Problems/Disorders - prostate ca, kidney cyst Denies: Hx Renal Disease Musculoskeletal History: Reports: Hx Arthritis Sensory History: Denies: Hx Contacts or Glasses, Hx Hearing Aid Opthamlomology History: Denies: Hx Contacts or Glasses EENT History: Denies: Hx Deafness Neurological History: Reports: Other Neuro Impairments/Disorders - numbness L first finger Psychiatric History: Denies: Hx Panic Disorder - Cancer History Cancer Type, Location and Year: PROSTATE Hx Chemotherapy: No Hx Radiation Therapy: No - Surgical History Surgery Procedure, Year, and Place: 2010 [facility] [place]. 08/2012 PROSTATECTOMY [place]. PILONIDIAL CYST 1972. MENISCUS REPAIR IN RIGHT [facility] [place] DR MAK Bravo Anesthesia Reactions: No - Immunization History Date of Tetanus Vaccine: up to date per pt Infectious Disease History: No Infectious Disease History: Denies: Traveled Outside the [place] in Last 30 Days - Family History Known Family History: Positive: Cardiac Disease, Hypertension - Social History Alcohol Use: Daily Alcohol Amount: 2-3/DAY Substance Use Type: Reports: None Smoking Status (MU): Former Smoker Have You Smoked in the Last Year: No Review of Systems Constitutional: Negative Eyes: Negative ENT: Negative Cardiovascular: Negative Respiratory: Negative Positive: Abdominal Pain Genitourinary: Negative Musculoskeletal: Negative Skin: Negative Neurological: Negative Psychological: Normal All Other Systems Reviewed And Are Negative: Yes Physical Exam - Summary Physical Exam Summary: Tenderness to palpation right lower quadrant, abdominal exam otherwise unremarkable. Lung sounds clear to auscultation bilaterally. No CVA tenderness bilaterally. Tenderness to palpation along left side paraspinal muscles of the lumbar spine. No trauma, ecchymosis, erythema, deformity, swelling noted to back. No bony point tenderness. PMS intact distally in bilateral lower extremities. Triage Information Reviewed: Yes Vital Signs On Initial Exam: Initial Vitals Temp Pulse Resp BP Pulse Ox 98.9 F 84 16 150/91 96 10/03/18 22:59 10/03/18 22:59 10/03/18 22:59 10/03/18 22:59 10/03/18 22:59 Vital Signs Reviewed: Yes Appearance: Positive: Well-Appearing Skin: Positive: Warm Head/Face: Positive: Normal Head/Face Inspection Eyes: Positive: Normal Neck: Positive: Supple Respiratory/Lung Sounds: Positive: Clear to Auscultation Cardiovascular: Positive: Normal Abdomen Description: Positive: Other: Musculoskeletal: Positive: Normal Neurological: Positive: Normal Psychiatric: Positive: Normal AVPU Assessment: Alert - Romy Coma Scale Best Eye Response: 4 - Spontaneous Best Motor Response: 6 - Obeys Commands Best Verbal Response: 5 - Oriented Coma Scale Total: 15 Diagnostics - Vital Signs Vital Signs Temp Pulse Resp BP Pulse Ox 10/04/18 00:07 77 148/82 95 10/04/18 00:00 81 95 10/03/18 23:23 99.1 F 10/03/18 23:17 78 94 10/03/18 22:59 98.9 F 84 16 150/91 96 - Laboratory Lab Results: Lab Results 10/04/18 10/04/18 10/04/18 Range/Units 00:00 00:00 00:00 WBC 9.3 (3.5-10.8) 10^3/uL RBC 4.63 (4.18-5.48) 10^6 /uL Hgb 14.4 (14.0-18.0) g/dL Hct 42 (42-52) % MCV 91 (80-94) fL MCH 31 (27-31) pg MCHC 34 (31-36) g/dL RDW 13 (10-15) % Plt Count 169 (150-450) 10^3/uL MPV 7.5 (7.4-10.4) fL Neut % (Auto) 76.4 % Lymph % (Auto) 10.3 % [place] % (Auto) 10.7 % Eos % (Auto) 2.2 % Baso % (Auto) 0.4 % Absolute Neuts (auto) 7.1 (1.5-7.7) 10^3/ul Absolute Lymphs (auto) 1.0 (1.0-4.8) 10^3/ul Absolute Monos (auto) 1.0 H (0-0.8) 10^3/ul Absolute Eos (auto) 0.2 (0-0.6) 10^3/ul Absolute Basos (auto) 0.0 (0-0.2) 10^3/ul Absolute Nucleated RBC 0.0 10^3/ul Nucleated RBC % 0.0 Sodium 138 (135-145) mmol/L Potassium 4.1 (3.5-5.0) mmol/L Chloride 109 (101-111) mmol/L Carbon Dioxide 24 (22-32) mmol/L Anion Gap 5 (2-11) mmol/L BUN 24 (6-24) mg/dL Creatinine 0.86 (0.67-1.17) mg/dL Est GFR ( Amer) 105.2 (>60) Est GFR (Non-Af Amer) 86.9 (>60) BUN/Creatinine Ratio 27.9 H (8-20) Glucose 140 H (70-100) mg/dL Lactic Acid 0.7 (0.5-2.0) mmol/L Calcium 9.0 (8.6-10.3) mg/dL Total Bilirubin 0.40 (0.2-1.0) mg/dL AST 16 (13-39) U/L ALT 16 (7-52) U/L Alkaline Phosphatase 62 (34-104) U/L C-Reactive Protein 18.70 H (<8.01) mg/L Total Protein 6.3 L (6.4-8.9) g/dL Albumin 4.1 (3.2-5.2) g/dL Globulin 2.2 (2-4) g/dL Albumin/Globulin Ratio 1.9 (1-3) Lipase 31 (11.0-82.0) U/L Urine Color Urine Appearance Urine pH (5-9) Ur Specific [place] (1.010-1.030) Urine Protein (Negative) Urine Ketones (Negative) Urine Blood (Negative) Urine Nitrate (Negative) Urine Bilirubin (Negative) Urine Urobilinogen (Negative) Ur Leukocyte Esterase (Negative) Urine WBC (Auto) (Absent) Urine RBC (Auto) (Absent) Urine Bacteria (Absent) Urine Glucose (Negative) 10/04/18 Range/Units 00:05 WBC (3.5-10.8) 10^3/uL RBC (4.18-5.48) 10^6 /uL Hgb (14.0-18.0) g/dL Hct (42-52) % MCV (80-94) fL MCH (27-31) pg MCHC (31-36) g/dL RDW (10-15) % Plt Count (150-450) 10^3/uL MPV (7.4-10.4) fL Neut % (Auto) % Lymph % (Auto) % [place] % (Auto) % Eos % (Auto) % Baso % (Auto) % Absolute Neuts (auto) (1.5-7.7) 10^3/ul Absolute Lymphs (auto) (1.0-4.8) 10^3/ul Absolute Monos (auto) (0-0.8) 10^3/ul Absolute Eos (auto) (0-0.6) 10^3/ul Absolute Basos (auto) (0-0.2) 10^3/ul Absolute Nucleated RBC 10^3/ul Nucleated RBC % Sodium (135-145) mmol/L Potassium (3.5-5.0) mmol/L Chloride (101-111) mmol/L Carbon Dioxide (22-32) mmol/L Anion Gap (2-11) mmol/L BUN (6-24) mg/dL Creatinine (0.67-1.17) mg/dL Est GFR ( Amer) (>60) Est GFR (Non-Af Amer) (>60) BUN/Creatinine Ratio (8-20) Glucose (70-100) mg/dL Lactic Acid (0.5-2.0) mmol/L Calcium (8.6-10.3) mg/dL Total Bilirubin (0.2-1.0) mg/dL AST (13-39) U/L ALT (7-52) U/L Alkaline Phosphatase (34-104) U/L C-Reactive Protein (<8.01) mg/L Total Protein (6.4-8.9) g/dL Albumin (3.2-5.2) g/dL Globulin (2-4) g/dL Albumin/Globulin Ratio (1-3) Lipase (11.0-82.0) U/L Urine Color Yellow Urine Appearance Clear Urine pH 5.0 (5-9) Ur Specific [place] 1.021 (1.010-1.030) Urine Protein Negative (Negative) Urine Ketones Negative (Negative) Urine Blood 1+ A (Negative) Urine Nitrate Negative (Negative) Urine Bilirubin Negative (Negative) Urine Urobilinogen Negative (Negative) Ur Leukocyte Esterase Negative (Negative) Urine WBC (Auto) Absent (Absent) Urine RBC (Auto) 2+(6-10/hpf) A (Absent) Urine Bacteria Absent (Absent) Urine Glucose Negative (Negative) Result Diagrams: 10/04/18 00:00 10/04/18 00:00 Lab Statement: Any lab studies that have been ordered have been reviewed, and results considered in the medical decision making process. Re-Evaluation - Re-Evaluation First Eval Re-Evaluation Time: 03:20 Change: Improved Comment: Dr. Rod reviewed the CT scan results with the patient. Patient denies nausea and vomitting at this time. Abdominal Pain Male Course/Dx - Course Course Of Treatment: Patient complains of sudden onset right lower quadrant pain tonight and acute left side lower back pain which started 2 days ago after patient was working on his trailer. Abdominal pain is constant, described as a dull ache. 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 Denies fever, cough, sore throat, CV, SOB, N/V/D, change in urine, change in BM. Medical history is none. Abdominal surgical history is none. Vital signs within normal limits. Labs unremarkable. CT abdomen and pelvis - Diagnoses Provider Diagnoses: Back spasm, Diverticulitis Discharge - Sign-Out/Discharge Documenting (check all that apply): Sign-Out Patient Signing out patient TO: Clement Rod Patient Received Moderate/Deep Sedation with Procedure: No - Discharge Plan Condition: Stable Disposition: HOME Prescriptions: Amoxicillin/Clavulanate TAB* [Augmentin TAB 875*] 875 mg PO BID #14 tab Cyclobenzaprine TAB* [Flexeril 10 MG TAB*] 10 mg PO TID PRN #20 tab PRN Reason: Spasms - Back Diazepam TAB(*) [Valium TAB(*)] 5 mg PO TID PRN 2 Days #5 tab MDD 3 tabs PRN Reason: Pain Patient Education Materials: Diverticulitis (ED) Referrals: Rivera Millard MD [Primary Care Provider] - 1 Day Additional Instructions: Follow up with your primary care provider within 1-2 days. Return to the ED for any new or worsening symptoms. - Billing Disposition and Condition Condition: STABLE Disposition: Home
[2018-10-04] MEDS ORDERED: Iohexol 300* (CONTRAST) 10 ML SDV IV ONE (00:30)
[2018-10-04] MEDS ORDERED: Lidocaine PATCH 5%* 1 PATCH TRANSDERM SCH (02:00)
[2018-10-04] MEDS ORDERED: Amoxicillin/Clavulanate TAB* 875 MG PO ONE (03:06)
--- NOTE | 2018-10-04 03:33 | ED ---
Progress - Progress Note Progress Note: This patient is a sign out from JULIO Brewer, on 10/04/18. Re-Evaluation - Re-Evaluation First Eval Re-Evaluation Time: 03:20 Change: Improved Comment: Dr. Rod reviewed the CT scan results with the patient. Patient denies nausea and vomitting at this time. Course/Dx - Course Course Of Treatment: This patient is a sign out from JULIO Brewer, on . At 0320, Dr. Rod reviewed the CT scan results with the patient. Patient denies nausea and vomitting at this time. Final diagnosis is diverticulitis. Patient was given oral antibiotics for diverticulitis as well as augmentin. Patient also requested muscle relaxer for back pain. Patient was told to follow up with a primary care provider within 1-2 days and to return to the ED for any new or worsening symptoms. - Diagnoses Provider Diagnoses: Back spasm Discharge - Sign-Out/Discharge Documenting (check all that apply): Receiving Sign-Out Receiving patient FROM: Marcos Ly - This patient is a sign out from JULIO Brewer, on 10/04/18. Patient Received Moderate/Deep Sedation with Procedure: No - Discharge Plan Condition: Stable Disposition: HOME Prescriptions: Amoxicillin/Clavulanate TAB* [Augmentin TAB 875*] 875 mg PO BID #14 tab Cyclobenzaprine TAB* [Flexeril 10 MG TAB*] 10 mg PO TID PRN #20 tab PRN Reason: Spasms - Back Diazepam TAB(*) [Valium TAB(*)] 5 mg PO TID PRN 2 Days #5 tab MDD 3 tabs PRN Reason: Pain Patient Education Materials: Diverticulitis (ED) Referrals: Rivera Millard MD [Primary Care Provider] - 1 Day Additional Instructions: Follow up with your primary care provider within 1-2 days. Return to the ED for any new or worsening symptoms. - Attestation Statements Document Initiated by Scribe: Yes Documenting Scribe: Murray Barajas Provider For Whom Greyson is Documenting (Include Credential): Dr. Clement Rod MD Scribe Attestation: Murray Jacobo, scribed for Dr. Clement Rod MD on 10/04/18 at 0412. Status of Scribe Document: Ready
[2018-10-04 03:50] VITALS: BP 143/92
[2018-10-04] MEDS ORDERED: Lidocaine Patch REMOVE* 1 NOTE MISC SCH (21:00)
== END 2018-10-04 03:51 | disposition home or self-care (01) ==
LOC: ED 22:52
DX: M62.830 Muscle spasm of back (principal); K57.92 Diverticulitis of intestine, part unspecified, without perforation or abscess without bleeding; Z85.46 Personal history of malignant neoplasm of prostate; Z87.442 Personal history of urinary calculi; Z87.891 Personal history of nicotine dependence; M54.5 Low back pain
CPT/HCPCS: 36415; 74177; 80053; 81003; 81015; 83605; 83690; 85025; 86140; 99283; A9270-GY; Q9967